=== PATIENT | female | born 1950 | race Asian ===

== ENCOUNTER 2017-07-19 05:45 | Inpatient (IN) | payer MEDICARE, OTHER ==
--- NOTE | 2017-07-13 12:27 | NUR ---
PREADMIT PT CARE NOTE THIS IS A 67 YEAR OLD FEMALE THAT IS SCHEDULED FOR A LEFT TOTAL KNEE ON 07/19/[address] WM DELGADO. PT STATES SHE LIVES ALONE IN A GROUND FLOOR APT WITH NO STAIRS. SHE SAYS SHE HAS A TUB SHOWER COMBINATION AND IS GOING TO GET A SHOWER SEAT FROM [employer]. STATES SHE WOULD LIKE MEDICARE TO PAY FOR A FWW WHILE SHE IS IN THE HOSPITAL. TOLD HER WE COULD DO THIS. PT STATES SHE HAS NOT BEEN TO [facility] (EXPLAINED WHERE IT IS LOCATED) SAYS SHE WILL GO THERE WHEN THEY ARE DONE HERE. PT HAS A FRIEND/CAREGIVER THAT IS GOING TO STAY 24 HOURS A DAY WITH HER UNTIL SHE IS GETTING AROUND ON HER OWN. PT DENIED FURTHER QUESTIONS AT THIS TIME. WILL FOLLOW THE PT WHILE SHE IS IN THE HOSPITAL. 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
[~2017-07-19] VITALS: Ht 165.1 cm; Wt 70.3 kg
[~2017-07-19 05:45] MED LIST: ACIDOPHILUS1 EAC4 PO; ADVIL200 M1 PO; AMLODIPINE BESYL5 MG PO; ATORVASTATIN CA20 MG PO; KEFLEX250 MG PO; LEVOTHYROXINE88 MCG PO; MIRALAX17 GM PO; OFLOXACIN10 ML AD; TYLENOL325 MG PO; VITAMIN B122500 MCG PO; VITAMIN C1000 MG PO; VITAMIN D31000 UNIT PO
--- NOTE | 2017-07-19 09:18 | NUR ---
07/19/17 0918 Arlyn Garcia PT AWOKE TO VOICE AND DENIES ANY PAIN. SPINAL LEVEL L1.
--- NOTE | 2017-07-19 11:14 | NUR ---
pt arrived to floor at 0945. pt nauseous. zofran and 12.5mg phenergan given so far. phenergan seems to have helped nausea. pt drowsy. c/o needing to urinate. bedpan placed. incontinent of urine. bed sheets changed. friend at bedside helping if needed.
--- NOTE | 2017-07-19 14:19 | NUR ---
PT IS RESTING SAFELY IN BED WITH CALL LIGHT IN REACH AND BED ALARM ON. PT IS VERY SLEEPY STILL EYES ARE CLOSED, RESPERATIONS EVEN. PT DID NOT NEED ANYHTING AT THE MOMENT
--- NOTE | 2017-07-19 16:16 | OR ---
[facility] [address], [place] [address] Signed DATE OF PROCEDURE: 07/19/17 PREOPERATIVE DIAGNOSIS: End-stage osteoarthritis, left knee. POSTOPERATIVE DIAGNOSIS: End-stage osteoarthritis, left knee. PROCEDURE: Left total knee arthroplasty. SURGEON: Bassem Blevins M.D. ANESTHESIA: Spinal with sedation. SPECIMENS AND COMPLICATIONS: There were no specimens or complications. TOURNIQUET TIME: About 85 minutes. DESCRIPTION OF PROCEDURE The patient taken to the operating room. After anesthesia was induced and the patient sedated, left lower extremity was positioned, prepped and draped in a routine sterile fashion. The leg was exsanguinated with an Esmarch bandage. Pneumatic tourniquet was inflated to 300 mmHg pressure. A straight anterior approach was made to the knee, centered over the patella. Skin was divided sharply. Subcutaneous tissue was divided sharply and hemostasis was achieved with electrocautery. A small medial flap was created and an anteromedial arthrotomy performed. The patella was turned up on edge, and measured to be about 23 mm. About 9 mm were trimmed off the posterior aspect of the patella with an oscillating saw and drill holes were placed for 32 mm all poly patellar button. The patella was then slid into the lateral recess. We then assembled the Abeba navigation system, placed it on the distal femur and following the Abeba protocol digitized the distal femur. We then resected the distal femur in neutral varus valgus, removing about 11 mm off the medial side and in about 3 degrees of flexion. Femoral wafers were then removed. We then transitioned the [place] navigation system to the proximal tibia. Again, following the Abeba protocol, we digitized the proximal tibia and then resected that in neutral varus valgus, 3 degrees of posterior slope per the attune surgical protocol and removing about 4 mm off the medial side. The tibial wafer was then removed. It sized to a size 5. We placed the femoral sizing jig on the distal femur and the patient sized midway between a 5 and a 6. To avoid notching, we upsized to a size 6 and placed the 6, 4-in-1 cutting block on the distal femur. Anterior, posterior, and chamfer cuts were made. Marginal osteophytes were then removed. The notch cutting block was placed on the distal femur and the notch was cut out. We placed the femoral trial on the distal femur and drilled the lug holes. We then placed the tibial tray with a 6 mm poly on the proximal tibia and reduced the knee. We were very happy with alignment, position, and stability. There was a little bit of gap on the lateral Electronically Signed By: BASSEM BLEVINS MD 07/19/17 1616 PATIENT NAME: ARIANNE LILLY OPERATIVE REPORT DATE OF : 48 PHYSICIAN: BASSEM BLEVINS MD REPORT #: [id number] REPORT IS CONFIDENTIAL AND NOT TO BE RELEASED WITHOUT AUTHORIZATION [address] [address] Signed side in flexion. We marked the position of the tibial tray and prepared the tibia with a standard reamer and a broach. We then placed the lamina stone engraver back in the knee, removed all the remaining aspects of the ACL, PCL, and medial and lateral meniscus. We then very gently pie crusted the small portion of the MCL, which gave us better balance. The knee was copiously irrigated and meticulously dried. The final components were then selected, cement was placed and the final components were cemented into place with a 5 mm right tibia and a size 6 narrow PS femur. We reduced the knee over 6 mm trial poly and held the knee in full extension. The patella was similarly cemented into place. Marginal cement was trimmed and removed. Once the cement had cured, we recycled the knee and found we could actually place an 8 mm poly with full extension and excellent stability. We therefore removed the 8 mm trial, impacted the real 8 mm PS poly. The knee was then reduced. This bone had good alignment, good position, and excellent stability. The knee was copiously irrigated and closed in a standard fashion. A sterile dressing was applied. The patient was awakened to the recovery room where she arrived in stable condition. Counts were correct and antibiotic protocols were followed. MD SLOAN Perdomo/Reba /[id number] cc: Radha Pitt PA-C Electronically Signed By: BASSEM BLEVINS MD 07/19/17 1616 PATIENT NAME: ARIANNE LILLY OPERATIVE REPORT DATE OF : 48 PHYSICIAN: BASSEM BLEVINS MD REPORT #: [id number] REPORT IS CONFIDENTIAL AND NOT TO BE RELEASED WITHOUT AUTHORIZATION
--- NOTE | 2017-07-19 17:55 | NUR ---
PT WAS SITTING IN CHAIR , BUT ASKED TO USE THE BEDSIDE COMMODE. PT IS CURRENTLY ON COMMODE WITH CALL LIGHT IN REACH, WILL CALL WHEN SHE IS DONE
--- NOTE | 2017-07-19 18:13 | NUR ---
MED REC COMPLETE
--- NOTE | 2017-07-19 19:05 | NUR ---
PATIENT SHIFT REPORT RECIEVED. PATIENT UP TO BSC 2PA W/FWW. PATIENT FRIEND IN ROOM. ASSISTED BACK TO RECLINER. CALL LIGHT IN REACH.
--- NOTE | 2017-07-19 22:25 | NUR ---
PATIENT UP TO BSC 2PA W/FWW. PATIENT COMPLAINS OF BEING DIZZY, STATES "NOT BAD AT EARLIER". PATIENT TOLERATING ICE CHIPS. DENIES NAUSEA AND PAIN. CALL LIGHT IN REACH.
--- NOTE | 2017-07-19 23:37 | NUR ---
PATIENT RESTING IN BED. PULSE OX 96% ON RA. PATIENT DENIES PAIN AND NAUSEA AT THIS TIME. CALL LIGHT IN REACH.
--- NOTE | 2017-07-20 01:01 | NUR ---
PATIENT RESTING IN BED. ICE PACK APPLIED TO RIGHT KNEE. PATIENT DENIES PAIN AND NAUSEA AT THIS TIME. CALL LIGHT IN REACH.
--- NOTE | 2017-07-20 01:30 | NUR ---
PATIENT UP TO BSC 2PA W/FWW. PATIENT STATES HER LEFT KNEE "FEELS SORE". PATIENT IS AAOX3. STEADY ON HER FEET, USES WALKER APPROPRIATELY. DRESSING C/D/I. PATIENT DENIES NAUSEA.
--- NOTE | 2017-07-20 02:00 | NUR ---
PATIENT UP BSC 2PA W/FWW. PATIENT STEAD ON HER FEET AND USES WALKER APPROPRIATELY. PATIENT NEEDS REMINDED NOT TO BEND LEFT KNEE. DRESSING C/D/I. PATIENT BECAME NAUSOUS UPON RETURNING TO BED. HAD 100MLS OF EMESIS. PRN NAUSEA MEDS GIVEN PER ORDER. ORAL CARE PROVIDED. PATIENT RETURNED TO RESTING POSITION. CALL LIGHT WITHIN REACH.
--- NOTE | 2017-07-20 04:02 | NUR ---
PATIENT RESTING, EYES CLOSED, RR 16. PULSE OX 92% ON RA.
--- NOTE | 2017-07-20 04:59 | NUR ---
PATIENT RESTING. EYES CLOSED. RR 16. PULSE OX 92% ON RA.
--- NOTE | 2017-07-20 05:22 | NUR ---
PATIENT RESTED ON AND OFF THROUGHOUT THE SHIFT. PATIENT 2PA W/FWW. CLEAR LIQUIDS; ICE CHIPS TOLERATED WELL. PATIENT REPORTED NO PAIN. PATIENT HAD ONE EPISODE OF NAUSEA WITH 100ML EMESIS. PRN NAUSEA MEDS X1. PULSE OX O2 WNL. SCDS IN PLACE. DRESSING ON LEFT KNEE C/D/I. ICE PACK APPLIED INTERMITTENTLY.
--- NOTE | 2017-07-20 06:13 | NUR ---
PATIENT BRUSHED HER TEETH AND WASHED HER FACE.
--- NOTE | 2017-07-20 06:16 | NUR ---
PT HAD BEEN ON COMMODE, BEING TRANSFERED BY 2 STAFF, BUT WHEN CALL LIGHT SOUNDED, FOUND PT SITTING ON THE EDGE OF THE BED, HAD TRANSFERED HERSELF TO THE BED FROM THE COMMODE. PT REMINDED TO WAIT FOR HELP, REMINDING HER THAT SHE NEEDS THE ASSISTANCE OF 2 STAFF. 4 RAILS PLACED UP, CALL LIGHT IN PLACE. WARM WASH CLOTH REQUESTED AND RECEIVED TO WASH HER FACE.
--- NOTE | 2017-07-20 07:11 | NUR ---
PATIENT RESTING IN BED. PULSE OX, 88%. TITRATED TO 1L NC. NEW ICE APPLIED TO KNEE. SCDS IN PLACE. HEEL PROTECTORS IN PLACE. PATIENT DENIES PAIN AND NAUSEA AT THIS TIME. CALL LIGHT IN REACH.
--- NOTE | 2017-07-20 07:30 | NUR ---
bed bath done. hands and face washed. patient up to chair with walker. chair alarm on. breakfast ordered. call button in reach. warm water, and blanket given.
--- NOTE | 2017-07-20 08:10 | NUR ---
PT AWAKE IN RECLINER EATING BREAKFAST, VISITOR IN ROOM. PT REPORTING 4/10 LEFT KNEE PAIN. MEDICATED WITH SCHEDULED TYLENOL AND TORADOL. PT DENIES NAUSEA THIS AM BUT STATES "IM STILL FEELING A LITTLE DIZZY." JUANA OATMEAL AND EGGS AT THIS TIME. IV INFUSING WNL. LEFT KNEE DRESSING CDI. CALL LIGHT WITHIN REACH.
--- NOTE | 2017-07-20 09:18 | NUR ---
PATIENT HAD ORAL CARE. UP TO BATHROOM WITH WALKER THEN BACK TO CHAIR. CALL BUTTON IN REACH.
--- NOTE | 2017-07-20 12:00 | NUR ---
ASSITED PATIENT TO BATHROOM TO BRUSH TEETH AND BACK TO CHAIR. CALL BUTTON IN REACH. LEGS UP. FRIEND IN ROOM. NO OTHER NEEDS AT THIS TIME.
--- NOTE | 2017-07-20 12:52 | NUR ---
PT SITTING UP IN CHAIR STATES "I'M GONNA TAKE A NAP." ATE ALL OF LUNCH, CONT TO DENY NAUSEA THIS SHIFT. CALL LIGHT WITHIN REACH.
--- NOTE | 2017-07-20 14:30 | NUR ---
ASSISTED PATIENT TO BATHROOM AND BACK. CHAIR ALARM ON. LEGS UP CALL BUTTON IN REACH. COMPLAINS ALOT ABOUT HER IV SITE "REALLY" HURTING. NOTIFIED NURSE. FRESH WATER GIVEN. NO OTHER NEEDS AT THIS TIME.
--- NOTE | 2017-07-20 15:44 | NUR ---
PT RESTING IN RECLINER, EYES CLOSED, RESP EVEN AND UNLABORED. VISITOR SLEEPING ON COUCH.
--- NOTE | 2017-07-20 16:48 | NUR ---
PT 1PA WITH WALKER TO RESTROOM. AMB BACK TO RECLINER. CALL LIGHT WITHIN REACH. CHAIR ALARM IN PLACE.
--- NOTE | 2017-07-20 17:50 | NUR ---
PATIENT SITTING IN CHAIR WITH LEGS ELEVATED. CALL BUTTON IN REACH. NO OTHER NEEDS AT THIS TIME.
--- NOTE | 2017-07-20 19:10 | NUR ---
SHIFT REPORT RECIEVED. STAGE TECHNICIAN IN ROOM ASSISTING WITH TOILETING NEEDS. PATIENT 1PA W/FWW.
--- NOTE | 2017-07-20 20:00 | NUR ---
PATIENT UP TO BATHROOM, 1PA W/FWW. PATIENT DENIES DIZZINESS AT THIS TIME. PATIENT RATES PAIN AT 8/10. SCHEDULED PAIN MEDS GIVEN PER ORDERS. DENIES NAUSEA. DRESSING C/D/I. PATIENT RETURNED TO BED. IV SL. PULSE OX DC. SCDS IN PLACE. ICE PACK APPLIED TO LEFT KNEE. PILLOWS PLACED ON SIDE OF KNEE FOR COMFORT. LUNG SOUNDS CLEAR THROUGHOUT. BOWEL SOUNDS ACTIVE. ABD NONTENDER, SOFT. HEEL PROTECTORS IN PLACE.
--- NOTE | 2017-07-20 23:09 | NUR ---
PATIENT UP TO BATHROOM. 1PA W/FWW. PATIENT STATES HER PAIN AT 8/10. PATIENT BACK TO BED. POSITIONED FOR COMFORT. ICE IN PLACE. WARM BLANKET PROVIDED. SCDS AND HEEL PROTECTORS IN PLACE. DRESSING ON LEFT KNEE C/D/I. CMS INTACT IN0 LOWER EXTREMITIES. PATIENT DENIES DIZZINESS WITH AMBULATION. DENIES NAUSEA. CALL LIGHT IN REACH. BED ALARM ON.
--- NOTE | 2017-07-21 00:28 | NUR ---
PATIENT RESTING IN BED. POSITIONED FOR COMFORT. ICE IN PLACE. PATIENT DENIES NAUSEA. STATES PAIN IS INCREASED, "IT IS SORE". DISCUSSED SCHEDULED PAIN MEDS WITH PATIENT, AGREES THAT SHE WILL WAIT UNTIL SCHDULED PAIN MEDS ARE DUE. NO PRN PAIN MEDS AVAILABLE AT THIS TIME. CALL LIGHT IN REACH.
--- NOTE | 2017-07-21 01:50 | NUR ---
PATIENT UP TO BATHROOM. 1PA W/FWW. PATIENT STEADY ON HER FEET. SCHEDULED PAIN MEDS GIVEN. FRESH WATER PROVIDED. ICE APPLIED TO LEFT KNEE. SCDS IN PLACE. PATIENT REFUSED HEEL PROTECTORS. PATIENT POSITIONED IN BED FOR COMFORT. DRESSING ON LEFT JOY C/D/I.
--- NOTE | 2017-07-21 03:45 | NUR ---
PATIENT RESTING IN BED. EYES CLOSED. RR16. CALL LIGHT WITHIN REACH. BED ALARM ON.
--- NOTE | 2017-07-21 04:28 | NUR ---
PATIENT UP TO BATHROOM. 1PA W/FWW. PATIENT REPORTS PAIN IS "BETTER". REFUSED HEEL PROTECTORS AND SCDS. ICE IN PLACE. CALL LIGHT IN REACH. BED ALARM ON.
--- NOTE | 2017-07-21 05:16 | NUR ---
PATIENT RESTED ON AND OFF THROUGHOUT THE NIGHT. SCHEDULED PAIN MEDS GIVEN, NO PRN PAIN MEDS ORDERED. ICE APPLIED TO LEFT KNEE. REFUSED SCDS AND HEEL PROTECTORS AT TIMES. DENIES NAUSEA AND DIZZINESS. 1PA W/FWW. BED ALARM ON, NEEDS REMINDED TO CALL FOR ASSISTANCE. TOLERATING REGULAR DIET. IV SL. DRESSING ON LEFT KNEE C/D/I.
--- NOTE | 2017-07-21 06:04 | NUR ---
PATIENT ASSISTED TO THE RESTROOM. PATIENT IS A SBA W/FWW. PATIENT TOLERATED AMBULATION WELL AND IS STEADY ON HER FEET. PATIENT IS NOW BACK IN BED RESTING. PATIENTS DRESSING REMAINS C/D/I W/NO SHADOWING PRESENT. PATIENT IS NOW BACK IN BED RESTING. PATIENTS BED ALARM IS ON FOR SAFETY. NEW ICE PACKS PLACED ON PATEINTS KNEE. PATIENT DENIES ANY FURTHER NEEDS. CALL LIGHT IN REACH.
--- NOTE | 2017-07-21 07:01 | NUR ---
CONTACTED IN [facility] [[email or web address]] TO PAIN MANAGEMENT. X2 NEW ORDERS RECIEVED. VERIFIED USING READ BACK METHOD. NEW ORDERS ENTERED.
--- NOTE | 2017-07-21 07:37 | NUR ---
1PA TO CHAIR FOR BREAKFAST. WARM BLANKETS PROVIDED. BLINDS RAISED. LINENS CHANGED. DRESSING TO LEFT KNEE C/D/I. AMBULATING WELL. C/O PAIN DURING AMBULATION, BUT RESOLVES AT REST.
--- NOTE | 2017-07-21 13:55 | NUR ---
PT SITTING IN CHAIR, WITH HEEL CUSHIONS ON. SHE WAS ALERT AND FRIENDLY. PAIN SEEMED TO BE AN ISSUE. I ENCOURAGED HER TO TRY AND STAY ON TOP OF PAIN, HER FRIEND THAT WAS IN VISITING SAID THAT'S WHAT SHE HAS BEEN TOLD BEFORE. SHE WAS FRIENDLY, AND KNODDED SHE UNDERSTOOD. WILL FOLLOW NEEDED
--- NOTE | 2017-07-21 15:10 | NUR ---
HANDOFF REPORT RECEIVED FROM RN MIKE, ASSUMED CARE OF PT.
--- NOTE | 2017-07-21 17:39 | NUR ---
PT KNEE NOW OPEN TO AIR, CLEAN, DRY, INTACT. PT RECEIVING PRN OXYCODONE X1 THIS SHIFT. PT AMBULATING WELL WITH ONE PERSON ASSIST, FWW, DOES NOT USE CALL LIGHT APPROPRIATELY IN RESTROOM, OTHERWISE A&O X3. MINIMAL NON-PITTING EDEMA NOTED ON LEFT LOWER EXTREMITY, ICE APPLIED Q2-3 ORDERED, ELEVATED LEG PERIODICALLY. PT HAS HAD LOOSE STOOLS THIS SHIFT AND YESTERDAY, HELD MIRALAX.
--- NOTE | 2017-07-21 18:15 | NUR ---
PT AMBULATED MED SURG HALLWAY X1 LAP WITH RN STANDBY. PT TOLERATED WELL, STATING THAT SHE'S IN NO PAIN. PT ASSISTED BACK IN TO BED, SCD'S APPLIED, PT GIVEN WARM BLANKETS. NO ADDITIONAL REQUESTS AT THIS TIME. CALL LIGHT GIVEN TO PT AND REMINDED PT TO USE CALL LIGHT FOR HELP GETTING UP.
--- NOTE | 2017-07-21 19:00 | NUR ---
REPORT RECV'D FROM FABIENNE STARKS, PT IN BED RESTING. PT STATES "I HAVE HAD A BUSY DAY." RATES PAIN A 4/10, PAIN IS TOLERABLE FOR PT. INCISION C/D/I, OPEN TO AIR. NO FURTHER NEEDS AT THIS TIME. CALL LIGHT IN PLACE.
--- NOTE | 2017-07-21 19:32 | NUR ---
GAVE PATIENT ICE PACKS. AND HOT TEA AND THE ONLY WAY SHE WOULD DRINK HER WATER IS WARM.
--- NOTE | 2017-07-21 20:07 | NUR ---
IN TO GIVEN PM MEDICATIONS, PT AWAKE. UP TO BATHROOM WITH FWW AND STANDBY ASSIST. REENFORCED USE OF CALL LIGHT WHEN NEEDING TO GET OUT OF BED. PT ASSISTED BACK TO BED, TOLERATED WELL. ASSESSMENT COMPLETED. PT RATE PAIN A 4/10, TYLENOL GIVEN. NO FURTHER NEEDS AT THIS TIME, CALL LIGHT IN REACH.
--- NOTE | 2017-07-21 22:15 | NUR ---
IN TO CHECK ON PT, PT APPEARS TO BE SLEEPING. NO APPARENT DISTRESS NOTED. RR EVEN AND UNLABORED. CALL LIGHT IN REACH.
--- NOTE | 2017-07-22 01:55 | NUR ---
PT CALLED TO USE RESTROOM. PT UP TO BATHROOM WITH STANDBY ASSIST AND FWW. PT TOLERATED WELL. ASSISTED BACK TO BED. PT RATES PAIN 5/10, OFFERED PRN NARCOTICS, PT DECLINED. PT STATES "TOO MUCH FOR ME." PT GIVEN SCHEDULE TYLENOL AND TORADOL FOR PAIN. PT IS CONCERNED ABOUT CONSTIPATION SINCE MEDICATIONS HAVE BEEN HELD FOR HAVING SEVERAL BM'S TODAY. I REASSURED PT THAT MIRALAX WILL BE GIVEN IN AM. FRESH WATER GIVEN. NO FURTHER NEEDS AT THIS TIME. CALL LIGHT IN REACH.
--- NOTE | 2017-07-22 04:16 | NUR ---
PT CALLED, UP TO BATHROOM WITH STANDBY ASSIST OF EMS INSTRUCTOR. PT REQUESTING "STUFF TO MAKE HER POP." PT VOICING CONCERNS REGARDING CONSTIPATION. PT REASSURED THAT DUE TO HAVING SEVERAL BM'S OVER THE PAST SHIFT AND MIRALAX BEING ORDERED IN THE AM SHE SHOULD NOT BE CONSTIPATED. NO FURTHER NEEDS AT THIS TIME. CALL LIGHT IN REACH.
--- NOTE | 2017-07-22 05:04 | NUR ---
PT HAS HAD UNEVENTFUL SHIFT, RESTED WELL. SCHEDULED TYLENOL AND TORADOL GIVEN FOR PAIN PER PT REQUEST. AAO X3, HAS USED CALL LIGHT APPROPRIATELY DURING SHIFT. INCISION SITE C/D/I, OPEN TO AIR. PT HAS APPLIED ICE FOR COMFORT. MOM HELD FOR BM DURING DAY SHIFT AND PREVIOUS SHIFTS. SL R HAND, FLUSHS WELL. VOIDING QS.
--- NOTE | 2017-07-22 07:00 | NUR ---
BEDSIDE HANDOFF REPORT RECEIVED FROM AUTOMATIC LATHE OPERATOR RN. PT SLEEPING, LEFT UNDISTURBED.
--- NOTE | 2017-07-22 08:00 | NUR ---
PT SITTING IN CHAIR, ATE BREAKFAST, TOLERATED WELL. PT ON ROOM AIR, LUNG SOUNDS CLEAR. PT DENIES NAUSEA, BOWEL TONES ACTIVE. PT RATING KNEE PAIN 6/10, GIVEN SCHEDULED TYLENOL. IV OCCLUDED, UNABLE TO FLUSH, NEW IV OBTAINED TO RIGHT FA, TORADOL GIVEN, LEFT HAND IV REMOVED. PT REQUESTING MIRALAX, GIVEN. MD TO BEDSIDE, PLAN TO DISCHARGE TODAY AFTER PHYSICAL THERAPY, DISCUSSED PAIN MANAGEMENT AT HOME. PT DENIES OTHER NEEDS AT THIS TIME, CALL LIGHT WITHIN REACH, CHAIR ALARM ON.
[2017-07-22] MEDS ORDERED: IBUPROFEN800 MG PO ×4 (09:20→09:33)
[2017-07-22] MEDS ORDERED: ACETAMINOPHEN650 M1 PO ×4 (09:21→09:34)
[2017-07-22] MEDS ORDERED: XARELTO10 MG PO ×4 (09:27→09:32)
[2017-07-22] MEDS ORDERED: OXYCODONE HCL10 MG PO ×2 (09:43)
--- NOTE | 2017-07-22 10:11 | NUR ---
DR. DELGADO CALLED TO VERIFY IBUPROFEN ORDER FOR PHARMACIST CONCERN OF BLEED RISK WITH XARELTO. TELEPHONE ORDER TO CHANGE IBUPROFEN TO 800 MG TID PRN FOR PAIN.
--- NOTE | 2017-07-22 11:01 | NUR ---
HAD SHOWER YESTERDAY REFUSED SHOWER TODAY. GOT HER SOME HOT TEA A COUPLE OF TIMES THIS MORNING.
--- NOTE | 2017-07-22 11:21 | NUR ---
CAREGIVER AND I WALKED WITH PATIENT 4 LAPS AROUND MED SURG THIS MORNING. PATIENT WAS DOING VERY WELL.
--- NOTE | 2017-07-22 13:53 | NUR ---
TOOK OUT PTS IV IN RIGHT FOREARM, INTACT AND NO SKIN BREAKDOWN
--- NOTE | 2017-07-23 10:56 | DS ---
[facility] [address] [place], [place] [address] Signed DATE OF DISCHARGE: 07/22/17 FINAL DIAGNOSIS At the time of discharge is end-stage osteoarthritis, left knee. PROCEDURE: Left total knee arthroplasty. ATTENDING PHYSICIAN: Todd Delgado MD. HISTORY OF PRESENT ILLNESS The patient is a 67-year-old white female with end-stage osteoarthritis in the left knee. No longer responding to conservative modalities. She therefore presented for elective total knee arthroplasty on the left. HOSPITAL COURSE The patient has been previously admitted to day surgery on the and evaluated and thought to be stable by the anesthesia service. On the , she was taken from day surgery to the operating room, where she underwent an uneventful left total knee arthroplasty using the Attune system. Postoperatively, she has done well. She is currently receiving excellent pain relief on alternating oxycodone and Dilaudid. She has been taking Xarelto for DVT prophylaxis. She is currently independent with her ambulation with a 4-wheeled walker. We will have her continue outpatient physical therapy for her right total knee following the total knee protocol and have her continue on oxycodone and Xarelto as an outpatient. We will have her follow up with us in 4-6 weeks to evaluate her progress. Todd Delgado MD WFB/Modl /[id number] cc: Radha Pitt PA-C Electronically Signed By: TODD DELGADO MD 07/23/17 1056 PATIENT NAME: ARIANNE LILLY DISCHARGE SUMMARY DATE OF : 48 PHYSICIAN: TODD DELGADO MD REPORT #: [id number] REPORT IS CONFIDENTIAL AND NOT TO BE RELEASED WITHOUT AUTHORIZATION
== END 2017-07-22 14:25 | disposition home or self-care (01) | DRG 470 ==
LOC: MS 05:45 → DSVR 05:45 → MS 06:45
PROVIDERS: ADMIT Orthopaedic Surgery
PROC: 0SRD0J9 Replacement of Left Knee Joint with Synthetic Substitute, Cemented, Open Approach (ICD-10-PCS; principal; 2017-07-19 06:45)
DX: M17.12 Unilateral primary osteoarthritis, left knee (principal); E03.9 Hypothyroidism, unspecified; I10 Essential (primary) hypertension; Z79.899 Other long term (current) drug therapy
CPT/HCPCS: 01402; 36415; 73560; 80048; 85025; 94760; 94762; 97110; 97116; 97161; C1713; C1776; J0690; J1885; J2250; J2274; J2405; J2550; J2704; J3010; J7120

== ENCOUNTER 2017-07-24 12:47 | Emergency (ER) | payer MEDICARE, OTHER ==
[~2017-07-24] VITALS: Ht 165.1 cm; Wt 70.3 kg
[~2017-07-24 12:47] MED LIST changes: +ACETAMINOPHEN650 M1 PO; +IBUPROFEN800 MG PO; +OXYCODONE HCL10 MG PO; +XARELTO10 MG PO
[2017-07-24] MEDS ORDERED: ZOFRAN ODT4 MG SL (14:11)
== END 2017-07-24 14:59 | disposition home or self-care (01) ==
LOC: ED 12:47
DX: M96.831 Postprocedural hemorrhage of a musculoskeletal structure following other procedure (principal); E03.9 Hypothyroidism, unspecified; I10 Essential (primary) hypertension; E78.5 Hyperlipidemia, unspecified; Z96.653 Presence of artificial knee joint, bilateral; Z98.890 Other specified postprocedural states; Z79.899 Other long term (current) drug therapy
CPT/HCPCS: 96372; 99283; J1170; J2550

== ENCOUNTER 2019-07-09 08:38 | Emergency (ER) | payer MEDICARE, OTHER ==
[~2019-07-09] VITALS: Ht 165.1 cm; Wt 70.3 kg
[~2019-07-09 08:38] MED LIST changes: +ZOFRAN ODT4 MG SL
[2019-07-09] MEDS ORDERED: LISINOPRIL10 MG PO (09:29)
[2019-07-09] MEDS ORDERED: LOVASTATIN40 MG PO (09:29)
[2019-07-09] MEDS ORDERED: TOPROL XL50 MG PO (10:39)
[2019-07-09] MEDS ORDERED: HYDROCHLOROTHIA25 MG PO (10:44)
== END 2019-07-09 10:54 | disposition home or self-care (01) ==
LOC: ED 08:38
DX: R05 Cough (principal); T46.4X5A Adverse effect of angiotensin-converting-enzyme inhibitors, initial encounter; E03.9 Hypothyroidism, unspecified; I10 Essential (primary) hypertension; E78.5 Hyperlipidemia, unspecified; Z79.899 Other long term (current) drug therapy
CPT/HCPCS: 71046; 99283-25

== ENCOUNTER 2019-07-13 10:44 | Inpatient (IN) | payer MEDICARE, OTHER ==
[~2019-07-13] VITALS: Ht 165.1 cm; Wt 69.0 kg
[~2019-07-13 10:44] MED LIST changes: +HYDROCHLOROTHIA25 MG PO; +LISINOPRIL10 MG PO; +LOVASTATIN40 MG PO; +TOPROL XL50 MG PO
--- OUTSIDE RECORDS SUMMARY | 2019-07-13 10:46 | XMS ---
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 [place] VISIT COUNT (12 MO.) 2 [facility] TOTAL 2 NOTE: Visits indicate total known visits. ED/UCC VISIT TRACKING (12 MO.) 07/13/2019 10:45 [facility] [place] TYPE: Emergency COMPLAINT: - VOMMITING 07/09/2019 08:38 [facility] TYPE: Emergency COMPLAINT: - COUGH- 2 MONTHS DIAGNOSES: - Hypothyroidism, unspecified - Other aquarist (current) drug therapy - Hyperlipidemia, unspecified - Adverse effect of isryrbdssuc-koukdurtav-vuxnew inhibitors, initial encounter - Essential (primary) hypertension - Cough INPATIENT VISIT TRACKING (12 MO.) No inpatient visits to display in this time frame [email or web address]
--- NOTE | 2019-07-13 15:55 | NUR ---
PT RESTING IN SEMI FOWLERS POSITION IN BED. PT A/O REPORTS HEADACHE, PT DECLINES TYLENOL BUT TAKES BP MED FOR ELEVATED BP OF 170/60. PT REQUESTED AND RECEIVED CHICKEN NOODLE SOUP. PT DENIES NAUSEA OR SOB. PT ASSESSMENT COMPLETED. CALL LIGHT AND H2O IN REACH. PT DENIES FURTHER NEEDS/CONCERNS.
[2019-07-13] MEDS ORDERED: ZITHROMAX250 MG PO (16:55)
--- NOTE | 2019-07-13 16:57 | NUR ---
MEDICATION RECONCILIATION COMPLETED. PATIENT STATES HER BLOOD PRESSURE IS NOT WELL CONTROLLED. STATES SHE HAS BEEN ASKING HER DOCTOR TO CHANGE HER MEDICATIONS FOR BLOOD PRESSURE CONTROL. NOW SHE WANTS TO GO BACK TO THE [facility], EXCEPT FOR LISINOPRIL WHICH MADE HER COUGH.
--- NOTE | 2019-07-13 19:47 | NUR ---
PT RESTING IN BED, REPOSITIONED PER REQUEST, IV FLUIDS INFUSING PER EMAR WNL, NO FURTHER NEEDS AT THIS TIME, CALL LIGHT WITHIN REACH.
--- NOTE | 2019-07-13 21:40 | NUR ---
PT UP TO BATHROOM, VOIDED IN TOILET, IV FLUIDS INFUSING PER EMAR WNL, PT'S LS CLEAR, HEART SOUNDS REGULAR, AOX4, APPROPRIATE, PT DENIES ANY NEEDS AT THIS TIME, CALL LIGHT WITHIN REACH. FALL PRECAUTIONS IN PLACE.
--- NOTE | 2019-07-13 23:07 | NUR ---
PT'S IV SL PER ORDER, PT RESTING IN BED COMFORTABLY, NO NEEDS AT THIS TIME, CALL LIGHT WITHIN REACH.
--- NOTE | 2019-07-14 01:00 | NUR ---
PT RESTING IN BED, EYES CLOSED, BREATHS EVEN, UNLABORED, NO NEEDS AT THIS TIME, CALL LIGHT WITHIN REACH.
--- NOTE | 2019-07-14 03:08 | NUR ---
PT RESTING IN BED, EYES CLOSED, BREATHS EVEN, UNLABORED, NO NEEDS AT THIS TIME, CALL LIGHT WITHIN REACH.
--- NOTE | 2019-07-14 04:51 | NUR ---
PT AOX4, APPROPRIATE, PT MOSTLY INDEPENDENT IN ROOM, IV SL NOW, SODIUM RECHECKED AT 2100 CAME BACK AT 127, SEE LABS, PT AMBULATES WELL, VOIDING WELL, USES CALL LIGHT APPROPRIATELY, NO C/O N/V/D,
--- NOTE | 2019-07-14 05:32 | NUR ---
PT RESTING IN BEDSIDE CHAIR, C/O ARGUELLES PAIN, PT STATES "THE AC IS GIVING ME A HEADACHE", PT REFUSES NEED FOR PRN TYLENOL, PT GIVEN WARM WASH CLOTH AND WARM WATER PER PT'S REQUEST, PT DENIES ANY FURTHER NEEDS AT THIS TIME, IV REMAINS SL, PT'S VSS, UO QS, CALL LIGHT WITHIN REACH. FALL PRECAUTIONS IN PLACE.
--- NOTE | 2019-07-14 07:17 | NUR ---
PT SITTING UP IN CHAIR ALERT AND ORIENTED. PT STATES "I THINK THIS IS ALL BECAUSE I SWITCHED MY BLOOD PRESSURE MEDACINE I NEED THREE MONTH PRESCRIPTION FOR AMLODAPINE BECAUSE THAT'S WHAT HAS WORKED FOR 10 YEARS". PT EDUCATED THAT THIS IS WHAT SHE IS CURRENTLY RECEIVING IN HOSPITAL AND THAT THIS WILL LIKELY BE CONTINUED BY MD AT TIME OF DISCHARGE. BEDSIDE REPORT RECEIVED FROM TEREZA BATISTA. PT
--- NOTE | 2019-07-14 07:54 | NUR ---
PT AMBULATING IN ROOM , DENIES DIZZINESS OR SOB BUT REPORTS PERSISTING HEADACHE OF 8/10 THAT SHE REPORTS SHE HAS HAD OFF AND ON SINCE SHE HAD HER SECOND FLU SHOT MORE THAN A WEEK AGO. PT REQUESTED AND RECEIVED PRN PO TYLENOL AND IS CURRENTLY SITTING UP IN CHAIR EATING BREAKFAST. CALL LIGHT AND H2O IN REACH. NO FURTHER NEEDS/CONCERNS VOICED.
--- NOTE | 2019-07-14 08:11 | NUR ---
PT SITTING UP IN CHAIR FINISHED HER BREAKFAST. VSS. AM MEDS ADMINISTERED. CALL LIGHT AND H2O IN REACH. NO FURTHER NEEDS/CONCERNS VOICED.
--- NOTE | 2019-07-14 09:12 | NUR ---
PATIENT SITTING UP IN CHAIR. VITAL SIGNS AND I&O DONE. CALL LIGHT WITHIN REACH. SETS UP BATHROOM FOR SHOWER. CALL LIGHT WITHIN REACH. NO OTHER NEEDS AT THIS TIME
--- NOTE | 2019-07-14 10:30 | NUR ---
PT REPORTS "I FEEL LIKE I SHOULD GO HOME TODAY, I LIKE FRESH AIR AND THIS WINDOW DOESN'T OPEN. THE CARE I HAVE RECEIVED IS REALLY GOOD AND I WOULD STAY BUT THIS CENTRAL AIR GIVES ME A HEADACH". "ALSO I NEED TO BE SENT WITH ENOUGH MEDICATION TO GET ME THROUGH TUESDAY UNTIL I CAN GAT IT FILLED FROM MY PHARMACY AND I NEED A THREE MONTH SUPPLY OF THE AMLODOPINE". DR DUFFY NOTIFIED OF PT'S REQEUSTS.
[2019-07-14] MEDS ORDERED: AMLODIPINE BESY10 MG PO (10:48)
--- NOTE | 2019-07-14 10:58 | NUR ---
PT SITTING UP IN CHAIR, PO K+ ADMINISTERED SEE EMAR. PT REQUESTED AND RECEIVED CREAM OF MUSHROOM SOUP. PT ALSO REQUESTED NAD RECEIVED CHICKEN NOODLE SOUP AND WARM WATER. CALL LIGHT AND H2O IN REACH. PT DENIES FURTHER NEEDS OR CONCERNS.
--- NOTE | 2019-07-14 11:26 | NUR ---
Pt sitting up in chair eating soup. Pt requested and received two glasses of warm water. Call light and h2o in reach. Pt denies further needs/concerns.
--- NOTE | 2019-07-14 11:41 | NUR ---
PATIENT SITTING UP IN CHAIR. PATIENT REFUSED TO TAKE A SHOWER TODAY BECAUSE SHE IS GOING TO BE DISCHARGE AND PPREFERS TO TAKE A SHOWER AT HOME
--- NOTE | 2019-07-14 14:06 | EKG ---
[facility] [address] [place] [address] Signed Normal sinus rhythm T wave abnormality, consider anterior ischemia Prolonged QT Abnormal ECG When compared with ECG of 13-JUL-2017 13:05, No significant change was found Confirmed by STELLA DUFFY DO ([id number]) on 07/14/2019 2:06:27 PM Electronically Signed By: STELLA DUFFY DO 07/14/19 1406 PATIENT NAME: ARIANNE LILLY Electrocardiogram DATE OF : 48 PHYSICIAN: STELLA DUFFY DO REPORT #: [id number] REPORT IS CONFIDENTIAL AND NOT TO BE RELEASED WITHOUT AUTHORIZATION
== END 2019-07-14 12:10 | disposition home or self-care (01) | DRG 641 ==
LOC: ED 10:44 → MS 10:46
PROVIDERS: ADMIT Student in an Organized Health Care Education/Training Program
DX: E87.1 Hypo-osmolality and hyponatremia (principal); R11.2 Nausea with vomiting, unspecified; E87.6 Hypokalemia; E78.5 Hyperlipidemia, unspecified; T50.2X5A Adverse effect of carbonic-anhydrase inhibitors, benzothiadiazides and other diuretics, initial encounter; I10 Essential (primary) hypertension; E03.9 Hypothyroidism, unspecified; Z79.899 Other long term (current) drug therapy
CPT/HCPCS: 93005; 93010; J1650; J2405; J3480; J7030; J7120

== ENCOUNTER 2019-08-14 08:47 | Emergency (ER) | payer MEDICARE, OTHER ==
[~2019-08-14] VITALS: Ht 165.1 cm; Wt 69.0 kg
--- OUTSIDE RECORDS SUMMARY | ~2019-08-14 | XMS | Encounter Summary ---
Demographics + + + | Address | [address] | | | [place] [address] | + + + | Home Phone | | + + + | Preferred Language | Unknown | + + + | Marital Status | Single | + + + | Latter-Day Affiliation | Unknown | + + + | Race | | + + + | Ethnic Group | Not or | + + + Author + + + | Author | [facility] | + + + | Organization | [facility] | + + + | Address | Unknown | + + + | Phone | Unavailable | + + + Support + + + + + | Name | Relationship | Address | Phone | + + + + + | Bessy Aviles | LITA | [address] | | | | | [id number], [place] | | | | | [address] | | + + + + + Care Team Providers + +------+ + | Care Director Of Sustainable Design Name | Role | Phone | + +------+ + | Radha Messer PA-C | PCP | | + +------+ + Reason for Visit + + + | Reason | Comments | + + + | Knee pain | Left Knee Pain | + + + Encounter Details +--------+---------+ + + + | Date | Type | Department | Care Team | Description | +--------+---------+ + + + | 02/11/ | Office | [facility] | Russell Hernandez, | Left knee pain, | | 2016 | Visit | Sports Medicine & | MD Jordy Reyes | unspecified | | | | Orthopaedic Surgery | [address] [place], [place] | chronicity (Primary | | | | [address] | [address] | Dx); Primary | | | | [address] | [phone] | osteoarthritis of | | | | [place], [place] | | one knee, left; Hip | | | | [address] | | pain, bilateral | | | | [phone] | | | +--------+---------+ + + + Social History + +-------+ +--------+------+ | Tobacco Use | Types | Packs/Day | Years | Date | | | | | Used | | + +-------+ +--------+------+ | Never Smoker | | | | | + +-------+ +--------+------+ + + +---------+ + | Alcohol Use | Drinks/Week | oz/Week | Comments | + + +---------+ + | No | 0 Standard drinks | 0.0 | | | | or equivalent | | | + + +---------+ + + + + | Sex Assigned at | Date Recorded | | | | + + + | Not on file | | + + + + + + + | Job Start Date | Occupation | Industry | + + + + | Not on file | Not on file | Not on file | + + + + + + + + | Travel History | Travel Start | Travel End | + + + + + + | No recent travel history available. | + + documented as of this encounter Last Filed Vital Signs + + + + + | Vital Sign | Reading | Time Taken | Comments | + + + + + | Blood Pressure | 112/70 | 02/12/2016 2:23 PM | right arm adult cuff | | | | PDT | | + + + + + | Pulse | 67 | 02/12/2016 2:23 PM | | | | | PDT | | + + + + + | Temperature | - | - | | + + + + + | Respiratory Rate | - | - | | + + + + + | Oxygen Saturation | 97% | 02/12/2016 2:23 PM | | | | | PDT | | + + + + + | Inhaled Oxygen | - | - | | | Concentration | | | | + + + + + | Weight | 68.5 kg (151 lb) | 02/12/2016 2:23 PM | | | | | PDT | | + + + + + | Height | - | - | | + + + + + | Body Mass Index | - | - | | + + + + + documented in this encounter Patient Instructions Patient Instructions Russell Hernandze MD - 02/12/2016 3:09 PM PDTHip is doing well; come get Xray of it in 3 years. Left knee has arthritis. I recommend trying cortisone again and if it doesn't give good, lasting relief, come talk to me about replacing it. We used a sma ll dose of cortisone today. I recommend you try to put off surgery if you are able, but we can do it if the problem impacts your lifestyle too much. I would not do it just so you can squat or kneel (you may or may not be able to do that after surgery...one cannot count on i t). documented in this encounter Progress Notes Russell Hernandez MD - 02/12/2016 2:28 PM PDTFormatting of this note might be different fr om the original. Reason for visit; Patient presents with: Knee pain: Left Knee Pain Onset/Date of Surgery; (pain since 2003. States that she injured her left knee at age 8 or 9 and knee got infected. She has also fallen on that knee in the past, last fall was last month. Denies any surgery on that knee. ) Pain score; Pain Score: 01 - None to Mild Vital signs; BP 112/70[right arm adult cuff[ | Pulse 67 | Wt 68.493 kg (151 lb) | SpO2 97% S: F/U Right THR (still occas groin pain). Ongoing left knee pain (childhood fracture). Medial pain, can't squatt, kneel, stand too long, swells, hurts medially. Has had some carlyle injections in past. O: Min effus, tender lat joint line, pain with flx >120, slight pseudolax collats, no redn ess. Left hip ROM nl. Right knee wi full ROM, Nn TTP, normal strength, stab. No periph ed anay. Right hip good ROM, slight tender groin. 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 Pevis: THR ok A: Post traumatic DJD L knee P: See the "Instructions" segment below in the AVS segment of today's note for plan. Consent was obtained. Risks and benefits were explained. Questions were encouraged and answ ered. Correct patient was identified. Correct site and side confirmed. The injection site was surgically prepped, and the injection carried out in a standard replaced by [facility] an[facility] ion, using anatomy, palpation, and aspiration/loss of resistance technique. Discussion was provided regarding the possibility of a post injection flare up as well as the possibility o f transient elevation of blood sugars in diabetics. Past Medical & Surgical History: Past medical and surgical history reviewed per patient intake form. Past Medical History Diagnosis Date Hyperlipidemia Environmental allergies Past Surgical History Procedure Laterality Date Total hip replacement Right 11/12/2014 Family History Problem Relation Hypertension Mother Hypertension Maternal Grandfather Review of Systems: Completed and reviewed with patient per patient intake form. See scanned document for refe rence. Social history: Padmini reports that she has never smoked. She does not have any smokeless tobacco histo ry on file. She reports that she does not drink alcohol.. Allergies: Allergies as of 02/12/2016 (No Known Allergies) Current Medications: Current Outpatient Prescriptions Medication amLODIPine 5 mg oral tablet atorvastatin 40 mg oral tablet levothyroxine 88 mcg oral tablet No current facility-administered medications for this visit. Review of Systems Constitutional: Negative for fever and weight loss. HENT: Negative for nosebleeds and sore throat. Respiratory: Negative for cough and shortness of breath. Cardiovascular: Negative for chest pain and leg swelling. Gastrointestinal: Negative for heartburn and blood in stool. Genitourinary: Negative for dysuria and frequency. Musculoskeletal: Positive for joint pain and falls. Skin: Negative for itching and rash. Neurological: Negative for tremors and seizures. Psychiatric/Behavioral: Negative for depression and substance abuse. documented in this e ncounter Plan of Treatment Not on filedocumented as of this encounter Procedures + +--------+ + + + | Procedure Name | Priori | Date/Time | Associated Diagnosis | Comments | | | ty | | | | + +--------+ + + + | MS DRAIN/INJECT | Routin | 02/12/2016 | Primary | | | LARGE JOINT/BURSA | e | 3:06 PM | osteoarthritis of | | | W/O US GUIDE | | PDT | one knee, left | | + +--------+ + + + documented in this encounter Results X-RAY KNEE 2 VIEWS LEFT (02/12/2016 4:23 PM PDT) + + | Specimen | + + | | + + + + + | Narrative | Performed At | + + + | [facility] [address], [place] | [facility] | | [address] Name: PADMINI LILLY Phys: | DEPARTMENT OF | | RUSSELL HERNANDEZ : 1950 Sex: F | RADIOLOGY | | CSN: [id number] MR# [id number] | | | Exam Date: 02/12/2016 EXAM: Bilateral knee series | | | CLINICAL HISTORY: Left knee pain COMPARISON: 11/05/2014 | | | TECHNIQUE: Standing AP and salt Contreras views of both knees were | | | obtained. FINDINGS: Left knee: There is severe medial | | | tibiofemoral joint space narrowing, subchondral sclerosis, vacuum | | | phenomenon, spurring, irregularity of the articular surfaces and mild | | | depression of the medial tibial plateau. Moderate lateral | | | tibiofemoral joint space narrowing and mild marginal spurring are | | | present. There is no acute fracture, osteochondral lesion or focal | | | osseous destruction. Right knee: Mild medial and lateral | | | tibiofemoral joint space narrowing are present. There is no | | | osteochondral lesion, acute fracture or focal osseous destruction. | | | IMPRESSION: Unchanged severe medial left knee tibiofemoral | | | posttraumatic joint degeneration with depression of the medial tibial | | | plateau from prior fracture. REPORT SIGNED IN OTHER VENDOR | | | SYSTEM 02/12/2016 Reported by: ADALI SHEN MD | | | Electronically signed by: ADALI SHEN MD Transcribed | | | Date/Time: 02/12/2016 16:23 Operating Room Aide: FLUENCY | | + + + + + | Procedure Note | + + | Interface, Radiology Results - 02/12/2016 4:28 PM [facility] | | [address] | | [place] [address] | | | | | | Name: PADMINI LILLY | | Phys: RUSSELL HERNANDEZ | | : 1950 Sex: F | | CSN: [id number] | | MR# [id number] | | Exam Date: 02/12/2016 | | | | EXAM: | | Bilateral knee series | | | | CLINICAL HISTORY: | | Left knee pain | | | | COMPARISON: | | 11/05/2014 | | | | TECHNIQUE: | | Standing AP and salt Contreras views of both knees were obtained. | | | | FINDINGS: | | Left knee: There is severe medial tibiofemoral joint space | | narrowing, subchondral sclerosis, vacuum phenomenon, spurring, | | irregularity of the articular surfaces and mild depression of the | | medial tibial plateau. Moderate lateral tibiofemoral joint space | | narrowing and mild marginal spurring are present. There is no acute | | fracture, osteochondral lesion or focal osseous destruction. | | | | Right knee: Mild medial and lateral tibiofemoral joint space | | narrowing are present. There is no osteochondral lesion, acute | | fracture or focal osseous destruction. | | | | IMPRESSION: | | Unchanged severe medial left knee tibiofemoral posttraumatic joint | | degeneration with depression of the medial tibial plateau from prior | | fracture. | | | | | | REPORT SIGNED IN OTHER VENDOR SYSTEM 02/12/2016 | | Reported by: ADALI SHEN MD | | | | Electronically signed by: ADALI SHEN MD | | | | Transcribed Date/Time: 02/12/2016 16:23 | | Operating Room Aide: FLUENCY | | | | | | | + + + +---------+ + + | Performing | Address | City/State/Zipcode | Phone Number | | Organization | | | | + +---------+ + + | [facility] | | | | RADIOLOGY | | | | + +---------+ + + X-RAY PELVIS 1 VIEW (02/12/2016 4:03 PM PDT) + + | Specimen | + + | | + + + + + | Narrative | Performed At | + + + | [facility] [address] [place] [address] | [facility] | | [address] Name: PADMINI LILLY Phys: | DEPARTMENT OF | | RUSSELL HERNANDEZ : 1950 Sex: F | RADIOLOGY | | CSN: [id number] MR# [id number] | | | Exam Date: 02/12/2016 EXAM: X-RAY PELVIS 1 VIEW | | | CLINICAL HISTORY: Pain COMPARISON: 01/01/2015 TECHNIQUE: AP | | | view of the pelvis was obtained. FINDINGS: A right total hip | | | arthroplasty with a single acetabular interlocking screw is present | | | in satisfactory position and there is no hardware | | | complication. Mild left hip joint space narrowing, acetabular and | | | femoral head marginal spurring are present. There is bilateral | | | moderate, right greater than left SI joint degeneration. The | | | symphysis pubis is intact. There is no acute fracture or focal | | | osseous destruction. IMPRESSION: Intact right total hip | | | arthroplasty without hardware complication. Mild left hip joint | | | degeneration. REPORT SIGNED IN OTHER VENDOR SYSTEM | | | 02/12/2016 Reported by: ADALI SHEN MD Electronically | | | signed by: ADALI SHEN MD Transcribed Date/Time: 02/12/2016 | | | 16:03 Operating Room Aide: FLUENCY | | + + + + + | Procedure Note | + + | Interface, Radiology Results - 02/12/2016 4:08 PM [facility] | | [address] | | [place] [address] | | | | | | Name: MAXXPADMINI | | Phys: RUSSELL HERNANDEZ | | : 1950 Sex: F | | CSN: [id number] | | MR# [id number] | | Exam Date: 02/12/2016 | | | | EXAM: | | X-RAY PELVIS 1 VIEW | | | | CLINICAL HISTORY: | | Pain | | | | COMPARISON: | | 01/01/2015 | | | | TECHNIQUE: | | AP view of the pelvis was obtained. | | | | FINDINGS: | | A right total hip arthroplasty with a single acetabular interlocking | | screw is present in satisfactory position and there is no hardware | | complication. Mild left hip joint space narrowing, acetabular and | | femoral head marginal spurring are present. There is bilateral | | moderate, right greater than left SI joint degeneration. The | | symphysis pubis is intact. There is no acute fracture or focal | | osseous destruction. | | | | IMPRESSION: | | Intact right total hip arthroplasty without hardware complication. | | Mild left hip joint degeneration. | | | | | | REPORT SIGNED IN OTHER VENDOR SYSTEM 02/12/2016 | | Reported by: ADALI SHEN MD | | | | Electronically signed by: ADALI SHEN MD | | | | Transcribed Date/Time: 02/12/2016 16:03 | | Operating Room Aide: FLUENCY | | | | | | | + + + +---------+ + + | Performing | Address | City/State/Zipcode | Phone Number | | Organization | | | | + +---------+ + + | [facility] | | | | | RADIOLOGY | | | | + +---------+ + + documented in this encounter Visit Diagnoses + + | Diagnosis | + + | Left knee pain, unspecified chronicity - Primary | + + | Primary osteoarthritis of one knee, left | + + | Hip pain, bilateral Pain in joint, pelvic region and thigh | + + documented in this encounter Administered Medications + +--------+ +-------+------+-------+ | Medication Order | MAR | Action | Dose | Rate | Site | | | Action | Date | | | | + +--------+ +-------+------+-------+ | Methylprednisolone Acetate 40 | Given | 02/12/2016 | 40 mg | | Left | | Mg Intraarticular | | 15:25 | | | Knee | | | | PDT | | | | + +--------+ +-------+------+-------+ +---+---+ | | | +---+---+ documented in this encounter
--- OUTSIDE RECORDS SUMMARY | ~2019-08-14 | XMS | Encounter Summary ---
Demographics + + + | Address | [address] | | | [place] [address] | + + + | Home Phone | | + + + | Preferred Language | Unknown | + + + | Marital Status | Single | + + + | Alevism Affiliation | Unknown | + + + | Race | | + + + | Ethnic Group | Not or | + + + Author + + + | Author | [facility] | + + + | Organization | [facility] | + + + | Address | Unknown | + + + | Phone | Unavailable | + + + Support + + + + + | Name | Relationship | Address | Phone | + + + + + | Bessy Aviles | ECON | [address] | | | | | [id number], [place] | | | | | [address] | | + + + + + Care Team Providers + +------+ + | Care Cabinet Worker Name | Role | Phone | + +------+ + PCP | Unavailable | + +------+ + Encounter Details +--------+ + + + + | Date | Type | Department | Care Team | Description | +--------+ + + + + | 08/22/ | Results | [facility] | Triston Hernandez, | | | 2013 | Only | Department | MD Jordy Reyes | | | | | | [place] | | | | | | [address] | | | | | | [phone] | | | | | | | | +--------+ + + + + Social History + +-------+ +--------+------+ | Tobacco Use | Types | Packs/Day | Years | Date | | | | | Used | | + +-------+ +--------+------+ | Never Assessed | | | | | + +-------+ +--------+------+ + + + | Sex Assigned at [...] + + documented as of this encounter Plan of Treatment Not on filedocumented as of this encounter Procedures + +--------+ + + + | Procedure Name | Priori | Date/Time | Associated Diagnosis | Comments | | | ty | | | | + +--------+ + + + | ORT HIP 1V | Routin | 08/22/2014 | | Results for this | | [address] | e | 3:01 PM | | procedure are in the | | | | PDT | | results section. | + +--------+ + + + | ORT PELVIS | Routin | 08/22/2014 | | Results for this | | [address] | e | 3:01 PM | | procedure are in the | | | | PDT | | results section. | + +--------+ + + + documented in this encounter Results ORT HIP 1V [id number] (08/22/2014 3:01 PM PDT) + + | Specimen | + + | | + + + + + | Narrative | Performed At | + + + | EXAM: SINGLE VIEW OF THE PELVIS AND ONE-VIEW OF THE RIGHT HIP | [facility] | | CLINICAL HISTORY: RIGHT HIP PAIN TECHNIQUE: AP view of the pelvis and | DEPARTMENT OF | | a frog-leg view of the right hip were obtained. COMPARISON: None | RADIOLOGY | | available FINDINGS: Severe narrowing of the superolateral aspect | | | of the right hip joint is present with subchondral sclerosis and | | | large subchondral cysts, greater within the femoral head. There is | | | a right acetabular spurring/overcoverage. Mild left hip joint | | | space narrowing is present with mild lateral acetabular rim/femoral | | | head spurring. Bilateral moderate SI joint degeneration is noted, | | | right greater than left. The symphysis pubis is | | | intact. Moderate to severe L4-L5 and L5-S1 disc space narrowing, | | | endplate spurring and sclerosis are noted. IMPRESSION: Severe | | | right superolateral hip osteoarthritis. | | + + + + + | Procedure Note | + + | Interface, Radiology Results - 07/31/2015 10:51 AM PDT EXAM: SINGLE VIEW OF THE | | PELVIS AND ONE-VIEW OF THE RIGHT HIPCLINICAL HISTORY: RIGHT HIP PAINTECHNIQUE: AP view | | of the pelvis and a frog-leg view of the right hipwere obtained.COMPARISON: None | | availableFINDINGS: Severe narrowing of the superolateral aspect of the righthip joint | | is present with subchondral sclerosis and large subchondralcysts, greater within the | | femoral head. There is a right acetabularspurring/overcoverage. Mild left hip joint | | space narrowing ispresent with mild lateral acetabular rim/femoral head | | spurring.Bilateral moderate SI joint degeneration is noted, right greater thanleft. The | | symphysis pubis is intact. Moderate to severe L4-L5 andL5-S1 disc space narrowing, | | endplate spurring and sclerosis arenoted.IMPRESSION: Severe right superolateral hip | | osteoarthritis. | |left. The symphysis pubis is intact. Moderate to severe L4-L5 and | |L5-S1 disc space narrowing, endplate spurring and sclerosis are | |noted. | |IMPRESSION: Severe right superolateral hip osteoarthritis. | + + + +---------+ + + | Performing | Address | City/State/Zipcode | Phone Number | | Organization | | | | + +---------+ + + | [facility] | | | | [facility] | | | | + +---------+ + + ORT PELVIS [id number] (08/22/2014 3:01 PM PDT) + + | Specimen | + + | | + + + + + | Narrative | Performed At | + + + | EXAM: SINGLE VIEW OF THE PELVIS AND ONE-VIEW OF THE RIGHT HIP | [facility] | | CLINICAL HISTORY: RIGHT HIP PAIN TECHNIQUE: AP view of the pelvis and | DEPARTMENT OF | | a frog-leg view of the right hip were obtained. COMPARISON: None | RADIOLOGY | | available FINDINGS: Severe narrowing of the superolateral aspect | | | of the right hip joint is present with subchondral sclerosis and | | | large subchondral cysts, greater within the femoral head. There is | | | a right acetabular spurring/overcoverage. Mild left hip joint | | | space narrowing is present with mild lateral acetabular rim/femoral | | | head spurring. Bilateral moderate SI joint degeneration is noted, | | | right greater than left. The symphysis pubis is | | | intact. Moderate to severe L4-L5 and L5-S1 disc space narrowing, | | | endplate spurring and sclerosis are noted. IMPRESSION: Severe | | | right superolateral hip osteoarthritis. | | + + + + + | Procedure Note | + + | Interface, Radiology Results - 07/31/2015 10:51 AM PDT EXAM: SINGLE VIEW OF THE | | PELVIS AND ONE-VIEW OF THE RIGHT HIPCLINICAL HISTORY: RIGHT HIP PAINTECHNIQUE: AP view | | of the pelvis and a frog-leg view of the right hipwere obtained.COMPARISON: None | | availableFINDINGS: Severe narrowing of the superolateral aspect of the righthip joint | | is present with subchondral sclerosis and large subchondralcysts, greater within the | | femoral head. There is a right acetabularspurring/overcoverage. Mild left hip joint | | space narrowing ispresent with mild lateral acetabular rim/femoral head | | spurring.Bilateral moderate SI joint degeneration is noted, right greater thanleft. The | | symphysis pubis is intact. Moderate to severe L4-L5 andL5-S1 disc space narrowing, | | endplate spurring and sclerosis arenoted.IMPRESSION: Severe right superolateral hip | | osteoarthritis. | |left. The symphysis pubis is intact. Moderate to severe L4-L5 and | |L5-S1 disc space narrowing, endplate spurring and sclerosis are | |noted. | |IMPRESSION: Severe right superolateral hip osteoarthritis. | + + + +---------+ + + | Performing | Address | City/State/Zipcode | Phone Number | | Organization | | | | + +---------+ + + | [facility] | | | | | RADIOLOGY | | | | + +---------+ + + documented in this encounter Visit Diagnoses Not on filedocumented in this encounter"
--- OUTSIDE RECORDS SUMMARY | ~2019-08-14 | XMS | Clinical Summary ---
Demographics + + + | Address | [address] | | | [place] [address] | + + + | Home Phone | | + + + | Preferred Language | Unknown | + + + | Marital Status | Unknown | + + + | Latter Day Affiliation | Unknown | + + + | Race | Unknown | + + + | Ethnic Group | Unknown | + + + Author + + + | Author | [facility] | | | and [place] | + + + | Organization | [facility] | | | and [place] | + + + | Address | Unknown | + + + | Phone | Unavailable | + + + Care Team Providers + +------+ + | Care Rodeo Rider Name | Role | Phone | + +------+ + PCP | Unavailable | + +------+ + Allergies No Known Allergies Medications + + + +---------+------+------+-------+ | Medication | Sig | Dispensed | Refills | Star | End | Statu | | | | | | t | Date | s | | | | | | Date | | | + + + +---------+------+------+-------+ | amLODIPine | | | 0 | 09/2 | | Activ | | (NORVASC) 5 mg | | | | 9/20 | | e | | tablet | | | | 15 | | | + + + +---------+------+------+-------+ | cetirizine | Take 10 mg by mouth. | | 0 | 10/2 | | Activ | | (ZYRTEC) 10 mg | | | | 3/20 | | e | | tablet | | | | 18 | | | + + + +---------+------+------+-------+ | levothyroxine | | | 0 | 09/2 | | Activ | | (SYNTHROID) 88 mcg | | | | 9/20 | | e | | tablet | | | | 15 | | | + + + +---------+------+------+-------+ | lovastatin | Take 20 mg by mouth | | 0 | 10/2 | | Activ | | (MEVACOR) 20 mg | nightly. | | | 3/20 | | e | | tablet | | | | 18 | | | + + + +---------+------+------+-------+ | Cyanocobalamin | Take by mouth. | | 0 | 10/2 | | Activ | | (B-12) 2500 MCG TABS | | | | 3/20 | | e | | | | | | 18 | | | + + + +---------+------+------+-------+ | cholecalciferol | Take 1,000 Units by | | 0 | 10/2 | | Activ | | (VITAMIN D-3) 1,000 | mouth daily. | | | 3/20 | | e | | units capsule | | | | 18 | | | + + + +---------+------+------+-------+ Active Problems Not on file Social History + +-------+ +--------+------+ | Tobacco [...] recent travel history available. | + + Last Filed Vital Signs + + + + | Vital Sign | Reading | Time Taken | + + + + | Blood Pressure | - | - | + + + + | Pulse | - | - | + + + + | Temperature | - | - | + + + + | Respiratory Rate | - | - | + + + + | Oxygen Saturation | - | - | + + + + | Inhaled Oxygen | - | - | | Concentration | | | + + + + | Weight | 74.8 kg (165 lb) | 08/29/20181125 PDT | + + + + | Height | 167.6 cm (5' 6") | 08/29/20181125 PDT | + + + + | Body Mass Index | 26.63 | 08/29/2018 1126 PDT | + + + + Plan of Treatment + + + + + | Health Maintenance | Due Date | Last Done | Comments | + + + + + | Hepatitis C | | | | | Screening | 9 | | | + + + + + | Vaccine: | | | | | Dtap/Tdap/Td (1 - | 8 | | | | Tdap) | | | | + + + + + | Colorectal Cancer | | | | | Screening | 9 | | | | (Colonoscopy) | | | | + + + + + | Vaccine: Zoster (1 | | | | | of 2) | 9 | | | + + + + + | Breast Cancer | | | | | Screening | 4 | | | + + + + + | Vaccine: | | | | | Pneumococcal 65+ | 4 | | | | Low/Medium Risk (1 | | | | | of 2 - PCV13) | | | | + + + + + | Adult Annual | | | | | Wellness Visit | 9 | | | + + + + + | Vaccine: Influenza | | | | | (#1) | 9 | | | + + + + + Results Not on filefrom Last 3 Months
--- OUTSIDE RECORDS SUMMARY | ~2019-08-14 | XMS | Clinical Summary ---
Demographics + + + | Address | [address] | | | [place] [address] | + + + | Home Phone | | + + + | Preferred Language | Unknown | + + + | Marital Status | Unknown | + + + | Mormonism Affiliation | Unknown | + + + | Race | Unknown | + + + | Ethnic Group | Unknown | + + + Author + + + | Author | [facility] (Historical as of | | | 06-23-19) | + + + | Organization | [facility] (Historical as of | | | 06-23-19) | + + + | Address | Unknown | + + + | Phone | Unavailable | + + + Support +--------+ +---------+ + | Name | Relationship | Address | Phone | +--------+ +---------+ + | No,One | ECON | Unknown | | +--------+ +---------+ + Care Team Providers + +------+ + | Care Document Design Specialist Name | Role | Phone | + +------+ + | Alisa Jaffe Family | PP | | + +------+ + Allergies No Known Allergies Current Medications + + +-------+---------+------+------+-------+ | Prescription | Sig. | Disp. | Refills | Star | End | Statu | | | | | | t | Date | s | | | | | | Date | | | + + +-------+---------+------+------+-------+ | amLODIPine | | | | 09/2 | | Activ | | (NORVASC) 5 MG | | | | 9/20 | | e | | tablet | | | | 15 | | | + + +-------+---------+------+------+-------+ | cetirizine | Take 10 mg by mouth. | | | | | Activ | | (ZYRTEC) 10 MG | | | | | | e | | tablet | | | | | | | + + +-------+---------+------+------+-------+ | levothyroxine | | | | 09/2 | | Activ | | (SYNTHROID) 88 MCG | | | | 9/20 | | e | | tablet | | | | 15 | | | + + +-------+---------+------+------+-------+ | lovastatin | Take 20 mg by mouth | | | | | Activ | | (MEVACOR) 20 MG | nightly. | | | | | e | | tablet | | | | | | | + + +-------+---------+------+------+-------+ | Cyanocobalamin | Take by mouth. | | | | | Activ | | (B-12) 2500 MCG TABS | | | | | | e | + + +-------+---------+------+------+-------+ | Cholecalciferol | Take 1,000 Units by | | | | | Activ | | 1000 units capsule | mouth daily. | | | | | e | + + +-------+---------+------+------+-------+ Active Problems No known active problems Social History + +-------+ +--------+------+ | Tobacco [...] on file | | + + + Last Filed Vital Signs + [...] Weight | 74.8 kg (165 lb) | 08/29/2018 11:25 AM PDT | + + + + | Height | 167.6 cm (5' 6") | 08/29/2018 11:25 AM PDT | + + + + | Body Mass Index | 26.63 | 08/29/2018 11:25 AM PDT | + + + + Plan [...] Screening | 9 | | | | (Mammogram) | | | | + + + + + | Colon Cancer | | | | | Screening | 9 | | | | (Colonoscopy) | | | | + + + + + | Vaccine: Zoster (1 | | | | | of 2) | 9 | | | + + + + + | DEXA SCAN SCREENING | | | | | | 4 | | | + + [...] Results Not on filefrom Last 3 Months Insurance + +--------+ +------+-------+ + | Payer | Benefi | Subscriber | Type | Phone | Address | | | t Plan | ID | | | | | | / | | | | | | | Group | | | | | + +--------+ +------+-------+ + | MEDICARE | MEDICA | [id number] | | | [address] | | | RE | | | | [place] [id number] | | | IP-OP | | | | | + +--------+ +------+-------+ + | MEDICAID | EASTER | [id number] | | | [address] | | | N | | | | [place] | | | [place] | | | | [address] | | | [employer] | | | | | + +--------+ +------+-------+ + + +--------+ +--------+ + + | Guarantor Name | Accoun | Relation to | Date | Phone | Billing Address | | | t Type | Patient | of | | | | | | | | | | + +--------+ +--------+ + + | PADMINI LILLY | Person | Self [birth year] | Home: | [address] | | | al/Fam | | 1950 | [id number] [place] | | | [place] | | | [phone] | [place] [address] | + +--------+ +--------+ + +
--- OUTSIDE RECORDS SUMMARY | ~2019-08-14 | XMS | Encounter Summary ---
Demographics + + + | Address | [address] | | | [place] [address] | + + + | Home Phone | | + + + | Preferred Language | Unknown | + + + | Marital Status | Single | + + + | Bahai Affiliation | Unknown | + + + | Race | | + + + | Ethnic Group | Not or | + + + Author + + + | Author | [facility] | + + + | Organization | [facility] | + + + | Address | Unknown | + + + | Phone | Unavailable | + + + Support + + + + + | Name | Relationship | Address | Phone | + + + + + | Bessy Aviles | ECON | [address] | | | | | [id number], [place] | | | | | [address] | | + + + + + Care Team Providers + +------+ + | Care Global Account Executive Name | Role | Phone | + +------+ + PCP | Unavailable | + +------+ + Encounter Details +--------+ + + + + | Date | Type | Department | Care Team | Description | +--------+ + + + + | 11/12/ | Results | [facility] | Triston Hernandez, | | | 2014 | Only | Department | MD Jordy Reyes | | | | | | [place] | | | | | | [address] | | | | | | [phone] | | | | | | | [...] | + +--------+ + + + | HEMATOCRIT | Routin | 11/14/2014 | | Results for this | | | e | 5:46 AM | | procedure are in the | | | | PST | | results section. | + +--------+ + + + | HEMATOCRIT | Routin | 11/13/2014 | | Results for this | | | e | 5:13 AM | | procedure are in the | | | | PST | | results section. | + +--------+ + + + | CAP GLU,POC | Routin | 11/12/2014 | | Results for this | | | e | 7:20 AM | | procedure are in the | | | | PST | | results section. | + +--------+ + + + documented in this encounter Results HEMATOCRIT (11/14/2014 5:46 AM PST) + + + + + + | Component | Value | Ref Range | Performed | Pathologist | | | | | At | Signature | + + + + + + | HEMATOCRIT | 24.9Comment: @RESULTS | 37.0 - 45.0 % | [facility] | | | | CALLED TO TEREZA TOUSSAINT AT | | A MEDICAL | | | | 0651. JOSELYN@Repeated | | CENTER | | | | by: Jeremy Youssef 11/14/14 | | | | | | 0649@Prev Result: % | | | | | | | | | | + + + + + + + + | Specimen | + + | | + + + + + + + | Performing | Address | City/State/Zipcode | Phone Number | | Organization | | | | + + + + + | [facility] | | | | | LABORATORY | | | | + + + + + | [facility] | [address] [place] | [place] [address] | [phone] | | MEDICAL CENTER | Streets | | | + + + + + HEMATOCRIT (11/13/2014 5:13 AM PST) + + + + + + | Component | Value | Ref Range | Performed | Pathologist | | | | | At | Signature | + + + + + + | HEMATOCRIT | 28.9 (L) | 37.0 - 45.0 % | [facility] | | | | | | A MEDICAL | | | | | | CENTER | | + + + + + + + + | Specimen | + + | | + + + + + + + | Performing | Address | City/State/Zipcode | Phone Number | | Organization | | | | + + + + + | [facility] | [place] | [place] [address] | [phone] | | [facility] | Streets | | | + + + + + CAP GLU,POC (11/12/2014 7:20 AM PST) + + + + + + | Component | Value | Ref Range | Performed | Pathologist | | | | | At | Signature | + + + + + + | BLOOD | 98Comment: Meter ID: | 70 - 110 MG/DL | [facility] | | | GLUCOSE, | [id number]: | | OF CARE | | | POC | [id number] Jinny Stoddard | | TESTING | | | |Visiting Teacher: [id number] Jinny Stoddard | | | | | | | | | | + + + + + + + + | Specimen | + + | | + + + +---------+ + + | Performing | Address | City/State/Zipcode | Phone Number | | Organization | | | | + +---------+ + + | [facility] | | | | | TESTING | | | | + +---------+ + + documented in this encounter Visit Diagnoses Not on filedocumented in this encounter"
--- OUTSIDE RECORDS SUMMARY | ~2019-08-14 | XMS | Clinical Summary ---
Demographics + + + | Address | [address] | | | [place] [address] | + + + | Home Phone | | + + + | Preferred Language | Unknown | + + + | Marital Status | Unknown | + + + | Anglican Affiliation | Unknown | + + + | Race | Unknown | + + + | Ethnic Group | Unknown | + + + Author + + + | Author | [facility] | | | and [place] | + + + | Organization | [facility] | | | and [place] | + + + | Address | Unknown | + + + | Phone | Unavailable | + + + Care Team Providers + +------+ + | Care Paediatric Surgeon Name | Role | Phone | + [...]
--- OUTSIDE RECORDS SUMMARY | ~2019-08-14 | XMS | Encounter Summary ---
Demographics + + + | Address | [address] | | | [place] [address] | + + + | Home Phone | | + + + | Preferred Language | Unknown | + + + | Marital Status | Single | + + + | Latter Day Affiliation | Unknown | + + + | Race | | + + + | Ethnic Group | Not or | + + + Author + + + | Author | [facility] | + + + | Organization | [facility] | + + + | Address | Unknown | + + + | Phone | Unavailable | + + + Support + + + + + | Name | Relationship | Address | Phone | + + + + + | Bessy Aviles | LIAT | [address] | | | | | [id number], [place] | | | | | [address] | | + + + + + Care Team Providers + +------+ + | Care Cleaner Furniture Name | Role | Phone | + +------+ + | Radha Messer PA-C | PCP | | + +------+ + Encounter Details +--------+ + + + + | Date | Type | Department | Care Team | Description | +--------+ + + + + | 02/11/ | Hospital | [facility] | | | | 2015 | Encounter | Sports Medicine & | | | | | | Orthopaedic Surgery | | | | | | [address] | | | | | | [place] | | | | | | [address] | | | | | | [phone] | | | +--------+ + + + [...] + + documented as of this encounter Medications at Time of Discharge + + + +---------+ + + | Medication | Sig | Dispensed | Refills | Start | End Date | | | | | | Date | | + + + +---------+ + + | amLODIPine 5 mg | Take 5 mg by mouth | | 0 | 02/09/20 | | | oral tablet | once daily. | | | 16 | | + + + +---------+ + + | atorvastatin 40 mg | Take 40 mg by mouth | | 0 | 02/09/20 | | | oral tablet | once daily. | | | 16 | | + + + +---------+ + + | levothyroxine 88 | Take 88 mcg by mouth | | 0 | 02/09/20 | | | mcg oral tablet | once daily. | | | 16 | | + + + +---------+ + + documented as of this encounter Plan of Treatment Not on filedocumented as of this encounter Procedures + +--------+ + + + | Procedure Name | Priori | Date/Time | Associated Diagnosis | Comments | | | ty | | | | + +--------+ + + + | X-RAY KNEE 2 VIEWS | Routin | 02/12/2016 | Left knee pain, | Results for this | | LEFT | e | 4:23 PM | unspecified | procedure are in the | | | | PDT | chronicity | results section. | + +--------+ + + + | X-RAY PELVIS 1 VIEW | Routin | 02/12/2016 | Hip pain, | Results for this | | | e | 4:03 PM | bilateral | procedure are in the | | | | PDT | | results section. | + +--------+ + + + documented in this encounter Results X-RAY KNEE 2 VIEWS LEFT (02/12/2016 4:23 PM PDT) + + | Specimen | + + | | + + + + + | Narrative | Performed At | + + + | [facility] [address] [place] [address] | [facility] | | [id number] Name: PADMINI LILLY Phys: | DEPARTMENT OF | | RUSSELL QUIROZ : 1950 Sex: F | RADIOLOGY | | CSN: [id number] MR# [id number] | | | Exam Date: 02/12/2016 EXAM: [...] Transcribed | | | Date/Time: 02/12/2016 16:23 Controller Repairer And Tester: FLUENCY | | + + + + + | Procedure Note | + + | Interface, Radiology Results - 02/12/2016 4:[address] [facility] | | [address] | | [place] [address] | | | | | | Name: PADMINI LILLY | | Phys: RUSSELL QUIROZ | | : 1950 Sex: F | | CSN: [id number] | | MR# [id number] | | Exam Date: 02/12/2016 | | [...] | Transcribed Date/Time: 02/12/2016 16:23 | | Controller Repairer And Tester: FLUENCY | | | | | | [...] Performed At | + + + | [facility] [address] [place] [address] | [facility] | | [id number] Name: PADMINI LILLY Phys: | DEPARTMENT OF | | RUSSELL QUIROZ : 1950 Sex: F | RADIOLOGY | | CSN: [id number] MR# [id number] | | | Exam Date: 02/12/2016 EXAM: [...] Transcribed Date/Time: 02/12/2016 | | | 16:03 Controller Repairer And Tester: CORI | | + + + + + | Procedure Note | + + | Interface, Radiology Results - 02/12/2016 4:[address] [facility] | | [address] [place] [address] | | [place] [address] | | | | | | Name: PADMINI LILLY | | Phys: RUSSELL QUIROZ [place] | | : 1950 Sex: F | | CSN: [id number] | | MR# [id number] | | Exam Date: 02/12/2016 | | [...] | Transcribed Date/Time: 02/12/2016 16:03 | | Controller Repairer And Tester: CORI | | | | | | | [...] + | Left knee pain, unspecified chronicity | + + | Hip pain, bilateral Pain in joint, pelvic region and thigh | + + documented in this encounter"
--- OUTSIDE RECORDS SUMMARY | ~2019-08-14 | XMS | Encounter Summary ---
Demographics + + + | Address | [address] | | | [place] [address] | + + + | Home Phone | | + + + | Preferred Language | Unknown | + + + | Marital Status | Single | + + + | Yazidism Affiliation | Unknown | + + + | Race | | + + + | Ethnic Group | Not or | + + + Author + + + | Author | [facility] | + + + | Organization | [facility] | + + + | Address | Unknown | + + + | Phone | Unavailable | + + + Support + + + + + | Name | Relationship | Address | Phone | + + + + + | Bessy Aviles | LITA | [address] | | | | | [id number], [place] | | | | | [address] | | + + + + + Care Team Providers + +------+ + | Care Corporate Compliance Director Name | Role | Phone | + +------+ + | Radha Messer PA-C | PCP | | + +------+ + Encounter Details +--------+ + + + + | Date | Type | Department | Care Team | Description | +--------+ + + + + | 11/12/ | Discharge | [facility] [address] | Triston Hernandez, | Discharge Summaries | | 2014 | Summary-Tra | [address] | [address] | | | | n[address] | [place] | [place] | | | | | [address] | [address] | | | | | | [phone] | | | | | | | [...] + + documented as of this encounter Discharge Summaries Triston Hernandez MD - 11/14/2014 8:27 AM [facility] DISCHARGE SUMMARY [address], [place] [address] PADMINI LILLY DATE OF ADMISSION: 11/12/2014 PRIMARY CARE PROVIDER: FINAL DIAGNOSIS: Degenerative joint disease, right hip. POSTOPERATIVE DIAGNOSIS: Degenerative joint disease, right hip. PROCEDURE: Right total hip arthroplasty. HOSPITAL COURSE: The patient had her hip replaced without incident. Her postoperative course has been quite uneventful. Her pain relief has been significant. She is discharged home, with home health being set up for physical therapy, oxycodone for pain, and Lovenox 30 mg b.i.d. through postop day 10 for prophylaxis. We are making efforts to make sure that the home health nurses, as well as the patient, and the patient's care giving friend, all understand that if her wound seeps, drains beyond the third postoperative day, we would like to have Lovenox discontinued, my office notified, and her to start on aspirin [address] of Lovenox, and take this for the next 30 days. She has a standard precautions for posterior-lateral approach hip replacement. Follow up appointment in my office in two weeks for staple removal. OMAR/Letty /[id number] CC: PADMINI LILLY Electronically Signed 11/19/14 1137 MD MAXX Bazan VICTORIA [id number] : 48 [id number] ADMIT DATE: 11/12/14 DISCHARGE DATE: 11/14/14 documented in this encounter Plan of Treatment Not on filedocumented as of this encounter Visit Diagnoses Not on filedocumented in this encounter"
--- OUTSIDE RECORDS SUMMARY | ~2019-08-14 | XMS | Clinical Summary ---
Demographics + + + | Address | [address] | | | [place] [address] | + + + | Home Phone | | + + + | Preferred Language | Unknown | + + + | Marital Status | Single | + + + | Bahai Affiliation | Unknown | + + + | Race | | + + + | Ethnic Group | Not or | + + + Author + + + | Author | [facility] | + + + | Organization | [facility] | + + + | Address | Unknown | + + + | Phone | Unavailable | + + + Support + + + + + | Name | Relationship | Address | Phone | + + + + + | Bessy Aviles | ECON | [address] | | | | | [id number], [place] | | | | | [address] | | + + + + + Care Team Providers + +------+ + | Care Transit Police Officer Name | Role | Phone | + +------+ + | Radha Messer PA-C | PCP | | + +------+ + Source Comments TAD is fully live on both [facility] Ambulatory and [facility] InPatient[facility] Allergies No Known Allergies Medications + + + +---------+------+------+-------+ | Medication | Sig | Dispensed | Refills | Star | End | Statu | | | | | | t | Date | s | | | | | | Date | | | + + + +---------+------+------+-------+ | amLODIPine 5 mg | Take 5 mg by mouth | | 0 | 04/0 | | Activ | | oral tablet | once daily. | | | 4/20 | | e | | | | | | 16 | | | + + + +---------+------+------+-------+ | atorvastatin 40 mg | Take 40 mg by mouth | | 0 | 04/0 | | Activ | | oral tablet | once daily. | | | 420 | | e | | | | | | 16 | | | + + + +---------+------+------+-------+ | levothyroxine 88 | Take 88 mcg by mouth | | 0 | 04/0 | | Activ | | mcg oral tablet | once daily. | | | 420 | | e | | | | | | 16 | | | + + + +---------+------+------+-------+ Active Problems Not on file Immunizations + + + + | Name | Administration Dates | Next Due | + + + + | Methylprednisolone | 02/12/2016 | | | Acetate 40 Mg | | | + + + + Family History + + +------+ + | Medical History | Relation | Name | Comments | + + +------+ + | Hypertension | Maternal | | | | | Grandfath | | | | | er | | | + + +------+ + | Hypertension | Mother | | | + + +------+ + + +------+ + + | Relation | Name | Status | Comments | + +------+ + + | Maternal Grandfather | | | | + +------+ + + | Mother | | | | + +------+ + + Social History + +-------+ +--------+------+ [...] | | + + + + + Plan of Treatment + + + + + | Health Maintenance | Due Date | Last Done | Comments | + + + + + | Pneumococcal | | | | | vaccination (1 of 2 | 4 | | | | - PCV13) | | | | + + + + + | Influenza (Flu) | | | | | vaccination (#1) | 9 | | | + + + + + Results Not on filefrom Last 3 Months Insurance + +--------+ +--------+ + +--------+ | Payer | Benefi | Subscriber | Effect | Phone | Address | Type | | | t Plan | ID | kate | | | | | | / | | Dates | | | | | | Group | | | | | | + +--------+ +--------+ + +--------+ | MEDICARE | MEDICA | xxxxxxxxxx | 05/07/20 | [phone] | [address] | Medica | | | RE A & | | 14-Pre | [address] | [address] | | | B | | sent | | [place], [place] | | | | | | | | [address] | | + +--------+ +--------+ + +--------+ | MANAGER INTERNSHIP MEDICAID | MANAGER INTERNSHIP | xxxxxxxx | Effect | | | Medica | | | [place] | | kate | | | id | | | [place] | | for | | | | | | | | all | | | | | | | | dates | | | | + +--------+ +--------+ + +--------+ + +--------+ +--------+ + + | Guarantor Name | Accoun | Relation to | Date | Phone | Billing Address | | | t Type | Patient | of | | | | | | | | | | + +--------+ +--------+ + + | Padmini Noguera | Person | Self [birth year] | [address] | | | [place] | | 1950 | [phone] | [address] | | | [place] | | | [address] (Home) | [place] [address] | + +--------+ +--------+ + +"
--- OUTSIDE RECORDS SUMMARY | ~2019-08-14 | XMS | Encounter Summary ---
Demographics + + + | Address | [address] | | | [place] [address] | + + + | Home Phone | | + + + | Preferred Language | Unknown | + + + | Marital Status | Single | + + + | Temple Affiliation | Unknown | + + + | Race | | + + + | Ethnic Group | Not or | + + + Author + + + | Author | [facility] | + + + | Organization | [facility] | + + + | Address | Unknown | + + + | Phone | Unavailable | + + + Support + + + + + | Name | Relationship | Address | Phone | + + + + + | Bessy Aviles | ECON | [address] | | | | | [id number], [place] | | | | | [address] | | + + + + + Care Team Providers + +------+ + | Care Patternmaker Plastics Name | Role | Phone | + [...] [place] | | | | | | [address] | | | | | | [phone] | | | | | | | [...] | | Results for this | | [address] | e | 3:01 PM | | procedure are in the | | | | PDT | | results section. | + +--------+ + + + | ORT PELVIS | Routin | 08/22/2014 | | Results for this | | [address] | e | 3:01 PM | | procedure are in the | | | | PDT | | results section. | + +--------+ + + + documented in this encounter Results ORT HIP [id number] [id number] (08/22/2014 3:01 PM PDT) + + | [...] | + +---------+ + + ORT PELVIS [id number] (08/22/2014 3:01 PM PDT) + + | [...]
--- OUTSIDE RECORDS SUMMARY | ~2019-08-14 | XMS | Encounter Summary ---
Demographics + + + | Address | [address] | | | [place] [address] | + + + | Home Phone | | + + + | Preferred Language | Unknown | + + + | Marital Status | Single | + + + | Tenriism Affiliation | Unknown | + + + | Race | | + + + | Ethnic Group | Not or | + + + Author + + + | Author | [facility] | + + + | Organization | [facility] | + + + | Address | Unknown | + + + | Phone | Unavailable | + + + Support + + + + + | Name | Relationship | Address | Phone | + + + + + | Bessy Aviles | LITA | [address] | | | | | [id number], [place] | | | | | [id number] | | + + + + + Care Team Providers + +------+ + | Care Photographer Apprentice Name | Role | Phone | + +------+ + PCP | Unavailable | + +------+ + Encounter Details +--------+ + + + + | Date | Type | Department | Care Team | Description | +--------+ + + + + | 11/12/ | Procedure - | [facility] | Triston Hernandez, | Operative Report | | 2015 | | E The | MD Jordy Reyes | | | | Transcribed | [place] | [place] | | | | | [address] | [address] | | | | | | [phone] | | | | | | | [...] | + +--------+ + + + | OPERATION RECORD | | 11/12/2014 | | Results for this | | | | 6:10 AM | | procedure are in the | | | | PST | | results section. | + +--------+ + + + documented in this encounter Results OPERATION RECORD (11/12/2014 6:10 AM PST) + + | Transcriptions | + + | 11/12/2014 1:30 PM [facility] | | REPORT OF [id number] [place] [address] | | LOYD LILLY: Triston Hernandez M.D.PREOPERATIVE DIAGNOSIS: Degenerative | | joint disease right hip.POSTOP DIAGNOSIS: Degenerative joint disease right | | hip.PROCEDURE: Right total hip arthroplasty, Angela ML taper, 52 Continuum shell, | | 36head neutral liner, size 6 mL taper, minus 3.5 head neck length for a 36 | | head.INDICATIONS: Padmini has debilitating right hip pain. It makes her walk with | | anextremely antalgic gait, with obliquity of her pelvis. She has a painful left kneeon | | the opposite side that makes ambulation difficult.Preoperative templating has revealed | | that her right leg is somewhat slightlyshorter than her left because of superior | | migration and arthritis. The normal lefthip was templated, and even with a low calcar | | cut, it appeared that with a minus3.5 head and neck length she might be lengthened by a | | couple millimeters. Wetherefore anticipated making a low calcar cut on the right side. | | On the normalleft hip she had quite a bit of offset. It seemed that an extended offset | | wouldperhaps be slightly too much on the left. I therefore felt that if we did not | | haveto medialize too far on the right, we could probably get away with a standardoffset. | | With the lower calcar cut, the templating suggested what we might need angi 7.5 stem on | | the right.DESCRIPTION OF PROCEDURE: The patient was taken to the preoperative holding | | area,site marked, questions answered, taken to the operating room, where because of | | hersmall mouth and position of her teeth intubation was carried out with somedifficulty | | utilizing a fiberoptic. Ultimately it was obtained without incident.She was examined in | | a supine position. The right leg was approximately 1/4 inchshorter than the left. She | | had flexion to 95 degrees, 10 degrees of internalrotation, 35 degrees of external | | rotation, with limited abduction of 30. She wasplaced in the lateral position with the | | left axilla padded and anterior-posteriorpositioner clamps on her pelvis. Her downed | | leg was flexed slightly at the hip andknee and the knees used as a preoperative relative | | bench mynor for leg-lengthening.The right hip was then prepped and draped in a sterile | | fashion. A time-out wastaken. A standard posterior lateral approach was made to the | | hip. The deep fasciawas divided and retracted with a self-retaining retractor. The | | capsular flap withexternal rotators was taken as 1 flap off its insertion on the femur, | | back to the posterior superior acetabulum. The corner of this flap was | | thentagged. The hip was then dislocated with flexion and internal rotation. Thefemoral | | head was extremely deformed and devoid of articular cartilage. The neckwas | | osteotomized and the femur retracted anteriorly. There was a lot of capsulartightness | | that had to be released in order to get acetabular exposure. There was alarge anterior | | superior osteophyte and a large posterior inferior cotyledon. Thelabrum was excised. | | The pulvinar was removed with a curette until we could getinto the cotyloid notch and | | seat well. The transverse acetabular ligament wasidentified and protected for a | | landmark. We began reaming with a 44, medializing.PADMINI [id number] : | | [id number] DATE: 11/12/14I medialized until it looked like I was almost | | flush with the floor. I thenexpanded the reamer. A 51 reamer allowed for a 52 | | Continuum shell to be impacted.We used the transverse acetabular ligament to make sure | | that the inferior aspect ofthe shell was contained deep to the ligament, that the | | acetabular shell wasanteverted in relationship to the transverse ligament, that there | | was some un-coverage posterior superiorly, it was flushed posteriorly and slightly | | countersunkanteriorly by a millimeter or two. A screw was then placed to hold it in | | place.We had excellent purchase with this screw. A trial neutral liner was placed. | | Theanterior osteophyte was resected. Next, attention was directed to the proximalfemur. | | A T-handled seeker was used to identify the canal. It was quite snug. Joanna used a | | [employer] cutter and a lateralizing reamer to make sure we had opened upthe lateral aspect | | proximally. We then began the broach. As mentioned, we hadtemplated for anticipating a | | 7.5. We seated a 5 and 6 broach nicely, and the 7.5seated nicely flush with our calcar | | cut. A reduction was carried out with astandard offset minus 3.5 head and neck. It | | was quite stable. However, it wasobviously slightly long because we had a positive drop | | kick sign, increased softtissue tension, and by measuring against the other leg, while | | still being shorterthan the other knee in this position, we had lengthened her. At this | | point, Ielected to remove the 7.5 broach, countersink the 5 followed by the 6 again. | | The 6was now countersunk about 6 mm and compared to the osteotomy cut. We did a | | trialreduction with this positioning on the 6. And I felt stability was good and rangeof | | motion good, without excessive soft tissue tension. We still had lengthened | | herslightly over the preoperative status. However, I could not get a finger betweenthe | | greater trochanter and the posterior wall of the pelvis, nor between the | | lessertrochanter and the ischium. I felt that we should trial an extended offset. | | Thiswas carried out, and I could now pass my finger beneath these tight spots | | easily.Stability was excellent. She had co-linear angle with correction with | | combinedanteversion of 45 degrees. I could externally rotate her without any | | instability.I could flex her and internally rotate her to 60 degrees without | | instability. An x-ray was obtained. It cut off a good part of her a right prosthesis, | | but we couldsee Christin's line was preserved, that the prosthesis did not appear to be | | inexcessive varus or valgus along the medial wall of the femur, that offset | | appearedsatisfactory and cup positioning was reasonable. I then removed the | | components,placed a second screw in the acetabulum, inserted a neutral liner, a 36 head. | | Elana impacted the size 6 ML taper extended offset stem. It did not seat flush | | likethe broach had. It was 3 mm proud. We waited for a period of time and thenimpacted | | some more, hoping to get further settling. It seemed quite stable and didnot appear to | | want to go any further. I gave thought at this time to trying toretrieve the | | prosthesis and perhaps countersink the size 6 broach a little further.However, my | | recollection was the 6 broach had seated quite firmly at the level thatwe had stopped | | and I was unsure that we could get at this countersink, and even ifit did, I was less | | sure that I could get the size 6 stem to countersink. All ofthis, of course, risked | | that we might end up with a less-secure fixation of thesize 6 prosthesis, not to mention | | complications such as fracture during the removaland further impaction. I felt that | | the slight amount of lengthening should beacceptable in light of this. We placed the | | minus 3.5 head and neck length, reducedit, irrigated it, closed the deep capsule with 1 | | Vicryl, closed the deep fasciawith running and interrupted #1 Vicryl, closed the | | subcutaneous with 2-0 Vicryl andthe skin with adrian. We had utilized an anesthetic | | cocktail in the deep tissuesprior to closure. A sterile dressing was applied and then | | the patient turned to asupine position, placed on a bed, and taken to the recovery room | | having toleratedthe procedure well. Estimated blood loss 500 mL. No replacement. No | | knowncomplications. We did take 1 AP x-ray of the femur after the final prosthesis | | wasin, and seating of the devices looked reasonable.PADMINI [id number] : | | [id number] DATE: 11/12/14JCS/MedQDD: 11/12/2014 11:06:03DT: 11/12/2014 | | 13:22:42Job #: [id number] Signed 11/19/14 | | 1137 | | | | | | | | | | | | | | Triston Daigle | | STORM [id number] : [id number] DATE: 11/12/14 | |it did, I was less sure that I could get the size 6 stem to countersink. All of | |this, of course, risked that we might end up with a less-secure fixation of the | |size 6 prosthesis, not to mention complications such as fracture during the removal | |and further impaction. I felt that the slight amount of lengthening should be | |acceptable in light of this. We placed the minus 3.5 head and neck length, reduced | |it, irrigated it, closed the deep capsule with 1 Vicryl, closed the deep fascia | |with running and interrupted #1 Vicryl, closed the subcutaneous with 2-0 Vicryl and | |the skin with adrian. We had utilized an anesthetic cocktail in the deep tissues | |prior to closure. A sterile dressing was applied and then the patient turned to a | |supine position, placed on a bed, and taken to the recovery room having tolerated | |the procedure well. Estimated blood loss 500 mL. No replacement. No known | |complications. We did take 1 AP x-ray of the femur after the final prosthesis was | |in, and seating of the devices looked reasonable. | | | | | |PADMINI LILLY | |[id number] : 49 | |[id number] | |ADMIT DATE: 11/12/14 | | | |JCS/MedQ | | | | | | /[id number] | |Electronically Signed 11/19/14 1137 | | | | | | Triston Hernandez MD | | | | | | | [...] | | | | | | | |PADMINI LILLY | |[id number] : 49 | |[id number] | |ADMIT DATE: 11/12/14 | + + documented in this encounter Visit Diagnoses Not on filedocumented in this encounter"
--- OUTSIDE RECORDS SUMMARY | ~2019-08-14 | XMS | Encounter Summary ---
Demographics + + + | Address | [address] | | | [place] [address] | + + + | Home Phone | | + + + | Preferred Language | Unknown | + + + | Marital Status | Single | + + + | Christian Affiliation | Unknown | + + + | Race | | + + + | Ethnic Group | Not or | + + + Author + + + | Author | [facility] | + + + | Organization | [facility] | + + + | Address | Unknown | + + + | Phone | Unavailable | + + + Support + + + + + | Name | Relationship | Address | Phone | + + + + + | Bessy Aviles | LITA | [address] | | | | | [id number], [place] | | | | | [address] | | + + + + + Care Team Providers + +------+ + | Care Oil And Gas Superintendent Name | Role | Phone | + [...] [place] | | | | | [address] | [address] | | | | | | [phone] | | | | | | | [...] | + + | 11/12/2014 1:30 PM [facility] | | REPORT OF [id number] [place] [address] | | LOYD LILLY: Triston Hernandez M.D.PREOPERATIVE [...] We began reaming with a 44, medializing.PADMINI [id number] : | | [id number] DATE: 11/12/14I medialized until it looked like [...] quite snug. Joanna used a | | [employer] cutter and a lateralizing reamer to make [...] and seating of the devices looked reasonable.PADMINI [id number] : | | [id number] DATE: 11/12/14JCS/MedQDD: 11/12/2014 11:06:03DT: 11/12/2014 | | 13:22:42Job #: [id number] Signed 11/19/14 | | 1137 | | | | | | | | | | | | | | Triston Daigle | | STORM [id number] : [id number] DATE: 11/12/14 | |it did, I was [...] | | | | |PADMINI LILLY | |[id number] : 49 | |[id number] | |ADMIT DATE: 11/12/14 | | | |JCS/MedQ | | | | | | /[id number] | |Electronically Signed 11/19/14 1137 | | [...] | | | | |PADMINI LILLY | |[id number] : 49 | |[id number] | |ADMIT DATE: 11/12/14 | + + documented in this encounter Visit Diagnoses Not on filedocumented in this encounter"
--- OUTSIDE RECORDS SUMMARY | ~2019-08-14 | XMS | Encounter Summary ---
Demographics + + + | Address | [address] | | | [place] [address] | + + + | Home Phone | | + + + | Preferred Language | Unknown | + + + | Marital Status | Single | + + + | Church Affiliation | Unknown | + + + | Race | | + + + | Ethnic Group | Not or | + + + Author + + + | Author | [facility] | + + + | Organization | [facility] | + + + | Address | Unknown | + + + | Phone | Unavailable | + + + Support + + + + + | Name | Relationship | Address | Phone | + + + + + | Bessy Aviles | ECON | [address] | | | | | [id number], [place] | | | | | [address] | | + + + + + Care Team Providers + +------+ + | Care Water Server Name | Role | Phone | + +------+ + PCP | Unavailable | + +------+ + Encounter Details +--------+ + + + + | Date | Type | Department | Care Team | Description | +--------+ + + + + | 11/05/ | Results | NON-[facility] | Triston Hernandez, | | | 2013 | Only | Department | MD Jordy Reyes | | | | | | [place] | | | | | | [address] | | | | | | [phone] | | | | | | | [...] | + +--------+ + + + | CBC W/DIFF, REFLEX | Routin | 11/05/2014 | | Results for this | | | e | 2:54 PM | | procedure are in the | | | | PST | | results section. | + +--------+ + + + | BASIC METABOLIC SET | Routin | 11/05/2014 | | Results for this | | (NA, K, CL, TCO2, | e | 2:54 PM | | procedure are in the | | BUN, CR, GLU, CA) | | PST | | results section. | + +--------+ + + + | ORT KNEE 4V OR MORE | Routin | 11/05/2014 | | Results for this | | [address] | e | 2:26 PM | | procedure are in the | | | | PST | | results section. | + +--------+ + + + | ORT HIP 2V | Routin | 11/05/2014 | | Results for this | | [address] | e | 1:56 PM | | procedure are in the | | | | PST | | results section. | + +--------+ + + + documented in this encounter Results CBC W/DIFF, REFLEX (11/05/2014 2:54 PM PST) + +-------+ + + + | Component | Value | Ref Range | Performed | Pathologist | | | | | At | Signature | + +-------+ + + + | WHITE BLOOD | 7.4 | 3.2 - 11.0 X10 | [facility] | | | CELL COUNT | | 3/uL | A MEDICAL | | | | | | CENTER | | + +-------+ + + + | HEMOGLOBIN | 13.1 | 12.0 - 16.0 | [facility] | | | | | g/dL | A MEDICAL | | | | | | CENTER | | + +-------+ + + + | RED BLOOD | 4.51 | 3.5 - 5.0 X10 | [facility] | | | CELL COUNT | | 6/uL | A MEDICAL | | | | | | CENTER | | + +-------+ + + + | HEMATOCRIT | 38.6 | 37.0 - 45.0 % | [facility] | | | | | | A MEDICAL | | | | | | CENTER | | + +-------+ + + + | MCV | 85.6 | 82 - 100 fL | [facility] | | | | | | A MEDICAL | | | | | | CENTER | | + +-------+ + + + | MCH | 29.1 | 28.0 - 35.0 pg | [facility] | | | | | | A MEDICAL | | | | | | CENTER | | + +-------+ + + + | MCHC | 34.0 | 32 - 36 g/dL | [facility] | | | | | | A MEDICAL | | | | | | CENTER | | + +-------+ + + + | RDW | 13.1 | 12 - 16 % | [facility] | | | | | | A MEDICAL | | | | | | CENTER | | + +-------+ + + + | PLATELET | 201 | 140 - 350 X10 3 | [facility] | | | COUNT | | | A MEDICAL | | | | | | CENTER | | + +-------+ + + + | MPV | 9.1 | 7.0 - 12.0 fL | [facility] | | | | | | A MEDICAL | | | | | | CENTER | | + +-------+ + + + | NEUTROPHIL | 72.4 | 40 - 80 % | [facility] | | | % | | | A MEDICAL | | | | | | CENTER | | + +-------+ + + + | LYMPHOCYTE | 21.1 | 15 - 45 % | [facility] | | | % | | | A MEDICAL | | | | | | CENTER | | + +-------+ + + + | EOS % | 0.6 | 0 - 5.8 % | [facility] | | | | | | A MEDICAL | | | | | | CENTER | | + +-------+ + + + | BASO % | 0.6 | 0 - 1.8 % | [facility] | | | | | | A MEDICAL | | | | | | CENTER | | + +-------+ + + + | MONOCYTE % | 5.3 | 4.2 - 11.0 % | [facility] | | | | | | A MEDICAL | | | | | | CENTER | | + +-------+ + + + | SEDIMENTATI | 13 | 0 - 30 MM/HR | [facility] | | | ON RATE | | | A MEDICAL | | | | | | CENTER | | + +-------+ + + + + + | Specimen | + + | | + + + + + + + | Performing | Address | City/State/Zipcode | Phone Number | | Organization | | | | + + + + + | [facility] | And | [place] [address] | [phone] | | MEDICAL [facility]ENTER | Streets | | | + + + + + BASIC METABOLIC SET (NA, K, CL, TCO2, BUN, CR, GLU, CA) (11/05/2014 2:54 PM PST) + + + + + + | Component | Value | Ref Range | Performed | Pathologist | | | | | At | Signature | + + + + + + | SODIUM, | 140 | 137 - 146 MEQ/L | [facility] | | | PLASMA | | | A MEDICAL | | | (LAB) | | | CENTER | | + + + + + + | POTASSIUM, | 3.9 | 3.5 - 5.2 MEQ/L | [facility] | | | PLASMA | | | A MEDICAL | | | (LAB) | | | CENTER | | + + + + + + | CO2 | 23 | 22 - 28 MEQ/L | [facility] | | | | | | A MEDICAL | | | | | | CENTER | | + + + + + + | CHLORIDE, | 103 | 98 - 106 MEQ/L | [facility] | | | PLASMA | | | A MEDICAL | | | (LAB) | | | CENTER | | + + + + + + | ANION GAP | 17.9 (H) | 8 - 16 MEQ/L | [facility] | | | | | | A MEDICAL | | | | | | CENTER | | + + + + + + | GLUCOSE, | 109 (H) | 70 - 105 MG/DL | [facility] | | | PLASMA | | | A MEDICAL | | | (LAB) | | | CENTER | | + + + + + + | BUN, PLASMA | 22 | 8 - 30 MG/DL | [facility] | | | (LAB) | | | A MEDICAL | | | | | | CENTER | | + + + + + + | CREATININE | 0.81 | 0.6 - 1.1 MG/DL | [facility] | | | PLASMA | | | A MEDICAL | | | (LAB) | | | CENTER | | + + + + + + | BUN/CREATIN | 27 (H) | 6 - 20 RATIO | [facility] | | | INE RATIO | | | A MEDICAL | | | | | | CENTER | | + + + + + + | CALCIUM, | 9.3 | 8.5 - 10.8 | [facility] | | | PLASMA | | MG/DL | A MEDICAL | | | (LAB) | | | CENTER | | + + + + + + | ESTIMATED | >60.0 | >60 | [facility] | | | GFR | | | A MEDICAL | | | | | | CENTER | | + + + + + + | FASTING? | 2HRS | HR | [facility] | | | | | | A MEDICAL | | | | | | CENTER | | + + + + + + + + | Specimen | + + | | + + + + + + + | Performing | Address | City/State/Zipcode | Phone Number | | Organization | | | | + + + + + | [facility] | And | [place] [address] | [phone] | | [facility] | Streets | | | + + + + + ORT KNEE 4V OR MORE [id number] (11/05/2014 2:26 PM PST) + + | Specimen | + + | | + + + + + | Narrative | Performed At | + + + | EXAM: BILATERAL KNEE SERIES CLINICAL HISTORY: Pain COMPARISON: | [facility] | | None available TECHNIQUE: Bilateral saltlake, standing AP and | DEPARTMENT OF | | merchant views as well as a lateral view of the left knee were | RADIOLOGY | | obtained. FINDINGS: Chronic depression of the medial left knee tibial | | | plateau is present, possibly from healed fracture deformity. | | | Moderate to severe left knee medial and mild to moderate lateral | | | tibiofemoral joint space narrowing is present with medial compartment | | | subchondral sclerosis and moderate tricompartmental marginal | | | spurring. There is vacuum phenomenon and articular surface | | | irregularity present within the medial tibiofemoral joint | | | compartment. No osteochondral lesion, acute fracture or focal | | | osseous destruction is identified. A small left knee suprapatellar | | | recess effusion is visualized. Mild patellofemoral osteoarthritis | | | is seen within the left knee with mild lateral patellofemoral joint | | | space narrowing. Bilateral patellofemoral alignment is | | | normal. Moderate medial and mild to moderate lateral tibiofemoral | | | joint space narrowing is present within the right knee without acute | | | fracture, focal osseous destruction or osteochondral lesion. | | | IMPRESSION:Moderate left knee medial tibiofemoral osteoarthritis with | | | chronic depression of the medial tibial plateau, possibly from | | | healed fracture deformity. | | + + + + + | Procedure Note | + + | Interface, Radiology Results - 07/31/2015 10:51 AM PDT EXAM: BILATERAL KNEE SERIES | | CLINICAL HISTORY: Pain | | COMPARISON: None available | | TECHNIQUE: Bilateral saltlake, standing AP and merchant views as well | | as a lateral view of the left knee were obtained. | | FINDINGS: Chronic depression of the medial left knee tibial plateau | | is present, possibly from healed fracture deformity. Moderate to | | severe left knee medial and mild to moderate lateral tibiofemoral | | joint space narrowing is present with medial compartment subchondral | | sclerosis and moderate tricompartmental marginal spurring. There is | | vacuum phenomenon and articular surface irregularity present within | | the medial tibiofemoral joint compartment. No osteochondral lesion, | | acute fracture or focal osseous destruction is identified. A small | | left knee suprapatellar recess effusion is visualized. Mild | | patellofemoral osteoarthritis is seen within the left knee with mild | | lateral patellofemoral joint space narrowing. | | Bilateral patellofemoral alignment is normal. Moderate medial and | | mild to moderate lateral tibiofemoral joint space narrowing is | | present within the right knee without acute fracture, focal osseous | | destruction or osteochondral lesion. | | IMPRESSION:Moderate left knee medial tibiofemoral osteoarthritis | | with chronic depression of the medial tibial plateau, possibly from | | healed fracture deformity. | + + + +---------+ + + | Performing | Address | City/State/Zipcode | Phone Number | | Organization | | | | + +---------+ + + | [facility] DEPARTMENT OF | | | | | RADIOLOGY | | | | + +---------+ + + ORT HIP 2V [id number] (11/05/2014 1:56 PM PST) + + | Specimen | + + | | + + + + + | Narrative | Performed At | + + + | EXAM: SINGLE VIEW OF THE PELVIS AND ONE-VIEW OF THE RIGHT HIP | [facility] | | CLINICAL HISTORY: TEMPLATING FILMS FOR ARTHROPLASTY SIZING TECHNIQUE: | DEPARTMENT OF | | AP view of the pelvis was obtained. COMPARISON: Right hip and | RADIOLOGY | | pelvis x-rays from 08/22/2014. FINDINGS: Severe central and | | | superolateral joint space narrowing, subchondral sclerosis and large | | | subchondral cysts are present within the right femoral head and | | | acetabulum with acetabular overcoverage from severe | | | osteoarthritis. The superolateral articular surface is mildly | | | flattened. Moderate right and mild left SI joint degeneration is | | | noted. The symphysis pubis is intact. There is no significant | | | narrowing of the left hip joint. No avascular necrosis or acute | | | fracture is visualized. IMPRESSION: Severe right hip | | | osteoarthritis. No interval acute change. | | + + + + + | Procedure Note | + + | Interface, Radiology Results - 07/31/2015 10:51 AM PDT EXAM: SINGLE VIEW OF THE | | PELVIS AND ONE-VIEW OF THE RIGHT HIPCLINICAL HISTORY: TEMPLATING FILMS FOR ARTHROPLASTY | | SIZINGTECHNIQUE: AP view of the pelvis was obtained.COMPARISON: Right hip and pelvis | | x-rays from 08/22/2014.FINDINGS: Severe central and superolateral joint space | | narrowing,subchondral sclerosis and large subchondral cysts are present withinthe right | | femoral head and acetabulum with acetabular overcoveragefrom severe osteoarthritis. The | | superolateral articular surface ismildly flattened. Moderate right and mild left SI | | joint degenerationis noted. The symphysis pubis is intact. There is no | | significantnarrowing of the left hip joint. No avascular necrosis or acutefracture is | | visualized.IMPRESSION: Severe right hip osteoarthritis. No intervalacute change. | |narrowing of the left hip joint. No avascular necrosis or acute | |fracture is visualized. | |IMPRESSION: Severe right hip osteoarthritis. No interval | |acute change. | + + + +---------+ + + [...]
--- OUTSIDE RECORDS SUMMARY | ~2019-08-14 | XMS | Encounter Summary ---
Demographics + + + | Address | [address] | | | [place] [address] | + + + | Home Phone | | + + + | Preferred Language | Unknown | + + + | Marital Status | Single | + + + | Tenriism Affiliation | Unknown | + + + | Race | | + + + | Ethnic Group | Not or | + + + Author + + + | Author | [facility] | + + + | Organization | [facility] | + + + | Address | Unknown | + + + | Phone | Unavailable | + + + Support + + + + + | Name | Relationship | Address | Phone | + + + + + | Bessy Aviles | LITA | [address] | | | | | [id number], [place] | | | | | [address] | | + + + + + Care Team Providers + +------+ + | Care Sheetmetal Patternmaker Name | Role | Phone | + +------+ + | Radha Messer PA-C | PCP | | + +------+ + Reason for Visit + + + | Reason | Comments | + + + | Appointment | | + + + Encounter Details +--------+ + + + + | Date | Type | Department | Care Team | Description | +--------+ + + + + | 01/18/ | Telephone | [facility] | Triston Hernandez, | Appointment | | 2016 | | Sports Medicine & | [address] | | | | | Orthopaedic Surgery | [address] [place] | | | | | [address] | [address] | | | | | [place] | [phone] | | | | | [place] | | | | | | [address] | | | | | | [phone] | | | +--------+ + + + [...]
--- OUTSIDE RECORDS SUMMARY | ~2019-08-14 | XMS | Encounter Summary ---
Demographics + + + | Address | [address] | | | [place] [address] | + + + | Home Phone | | + + + | Preferred Language | Unknown | + + + | Marital Status | Single | + + + | Sabianist Affiliation | Unknown | + + + | Race | | + + + | Ethnic Group | Not or | + + + Author + + + | Author | [facility] | + + + | Organization | [facility] | + + + | Address | Unknown | + + + | Phone | Unavailable | + + + Support + + + + + | Name | Relationship | Address | Phone | + + + + + | Bessy Aviles | LITA | [address] | | | | | [id number], [place] | | | | | [address] | | + + + + + Care Team Providers + +------+ + | Care Bobbin Coil Winder Name | Role | Phone | + [...] [place] | | | | | [address] | [address] | | | | | | [phone] | | | | | | | [...] Triston Hernandez MD - 11/14/2014 8:27 AM [facility] DISCHARGE SUMMARY [address] [address] PADMINI LILLY DATE OF ADMISSION: 11/12/2014 PRIMARY [...] in two weeks for staple removal. OMAR/Letty /[id number] CC: PADMINI LILLY Electronically Signed 11/19/14 1137 MD MAXX Bazan VICTORIA [id number] : 49 [id number] ADMIT DATE: 11/12/14 DISCHARGE DATE: 11/14/14 documented in this encounter Plan of Treatment Not on filedocumented as of this encounter Visit Diagnoses Not on filedocumented in this encounter"
--- OUTSIDE RECORDS SUMMARY | ~2019-08-14 | XMS | Clinical Summary ---
Demographics + + + | Address | [address] | | | [place] [address] | + + + | Home Phone | | + + + | Preferred Language | Unknown | + + + | Marital Status | Unknown | + + + | Gnosticism Affiliation | Unknown | + + + | Race | Unknown | + + + | Ethnic Group | Unknown | + + + Author + + + | Author | [facility] (Historical as of | | | 06-23-19) | + + + | Organization | [facility] (Historical as of | | | 06-23-19) | + + + | Address | Unknown | + + + | Phone | Unavailable | + + + Support +--------+ +---------+ + | Name | Relationship | Address | Phone | +--------+ +---------+ + | No,One | ECON | Unknown | | +--------+ +---------+ + Care Team Providers + +------+ + | Care Shelter Director Name | Role | Phone | [...] +------+-------+ + | MEDICARE | MEDICA | [id number] | | | [address] | | | RE | | | | [place] [address] | | | IP-OP | | | | | + +--------+ +------+-------+ + | MEDICAID | [place] | [id number] | | | [address] | | | N | | | | [place] | | | [place] | | | | [address] | | | OPS ANALYST | | | | | + +--------+ [...] | | al/Fam | | 1950 | [phone] | | | [place]ida | | | [phone] | [place] [address] | + +--------+ +--------+ + +
--- OUTSIDE RECORDS SUMMARY | ~2019-08-14 | XMS | Encounter Summary ---
Demographics + + + | Address | [address] | | | [place] [address] | + + + | Home Phone | | + + + | Preferred Language | Unknown | + + + | Marital Status | Single | + + + | Worship Affiliation | Unknown | + + + | Race | | + + + | Ethnic Group | Not or | + + + Author + + + | Author | [facility] | + + + | Organization | [facility] | + + + | Address | Unknown | + + + | Phone | Unavailable | + + + Support + + + + + | Name | Relationship | Address | Phone | + + + + + | Bessy Aviles | ECON | [address] | | | | | [id number], [place] | | | | | [address] | | + + + + + Care Team Providers + +------+ + | Care Sampler Pickup Name | Role | Phone | + [...] [place] | | | | | | [address] | | | | | | [phone] | | | | | | | [...] | | Results for this | | [address] | e | 2:26 PM | | procedure are in the | | | | PST | | results section. | + +--------+ + + + | ORT HIP 2V | Routin | 11/05/2014 | | Results for this | | [address] | e | 1:56 PM | | [...] | + + + + + | [facility] | And | [place] [address] | [phone] | | MEDICAL CENTER | Streets | [...] 140 | 137 - 146 MEQ/L | [facility] | | | PLASMA | | | [...] | + + + + + | [facility] | And | [place] [address] | [phone] | | [facility] | Streets | | | + + + + + ORT KNEE 4V OR MORE [address] (11/05/2014 2:26 PM PST) + + | [...] + +---------+ + + ORT HIP 2V [id number] (11/05/2014 1:56 PM PST) + + | [...]
--- OUTSIDE RECORDS SUMMARY | ~2019-08-14 | XMS | Encounter Summary ---
Demographics + + + | Address | [address] | | | [place] [address] | + + + | Home Phone | | + + + | Preferred Language | Unknown | + + + | Marital Status | Single | + + + | Mormonism Affiliation | Unknown | + + + | Race | | + + + | Ethnic Group | Not or | + + + Author + + + | Author | [facility] | + + + | Organization | [facility] | + + + | Address | Unknown | + + + | Phone | Unavailable | + + + Support + + + + + | Name | Relationship | Address | Phone | + + + + + | Bessy Aviles | LITA | [address] | | | | | [id number], [place] | | | | | [address] | | + + + + + Care Team Providers + +------+ + | Care Freight Handler Name | Role | Phone | + [...] | | [address] | [address] | | | | | [place] | [phone] | | | | | [place] | | | | | | [address] | | | | | | [phone] | | | +--------+ + + + [...]
--- OUTSIDE RECORDS SUMMARY | ~2019-08-14 | XMS | Clinical Summary ---
Demographics + + + | Address | [address] | | | [place] [address] | + + + | Home Phone [...] [address] | | | | | [id number], [place] | | | | | [address] | | + + + + + Care Team Providers + +------+ + | Care Investment Director Name | Role | Phone | + +------+ + | Radha Messer PA-C | PCP | | + +------+ + Source Comments TAD is fully live on both [facility] Ambulatory and [facility] InPatient.[facility] Allergies No Known Allergies Medications + [...] | B | | sent | | [place], [place] | | | | | | | | [address] | | + +--------+ +--------+ + +--------+ | TITLE I PARAPROFESSIONAL MEDICAID | TITLE I PARAPROFESSIONAL | xxxxxxxx | Effect | | | [...] | | al/Rupert | | 1950 | [phone] | [address] | | | alida | | | [address] (Home) | [place] [address] | + +--------+ +--------+ + +"
--- OUTSIDE RECORDS SUMMARY | ~2019-08-14 | XMS | Encounter Summary ---
Demographics + + + | Address | [address] | | | [place] [address] | + + + | Home Phone | | + + + | Preferred Language | Unknown | + + + | Marital Status | Single | + + + | Orthodoxy Affiliation | Unknown | + + + [...] [address] | | | | | [id number], [place] | | | | | [address] | | + + + + + Care Team Providers + +------+ + | Care Double End Tenoner Operator Name | Role | Phone | + [...] | | [address] | [address] | Dx); Primary | | | | [place] [address] | [phone] | osteoarthritis of | | | | [place], [place] | | one knee, left; Hip | | | | [address] | | pain, bilateral | | | | [phone] | | | +--------+---------+ + + + [...] this encounter Patient Instructions Patient Instructions Russell Hernandez MD - 02/12/2016 3:09 PM PDTHip is [...] the injection carried out in a standard [facility] ion, using anatomy, palpation, and aspiration/loss of [...] | + +--------+ + + + | [place] DRAIN/INJECT | Routin | 02/12/2016 | Primary [...] Performed At | + + + | [facility] [address], [place] | [facility] | | [address] Name: PADMINI LILLY Phys: | DEPARTMENT OF | | RUSSELL HERNANDEZ : 1950 Sex: F | RADIOLOGY | | CSN: [id number] MR# [id number] | | | Exam Date: 02/12/2016 EXAM: [...] Transcribed | | | Date/Time: 02/12/2016 16:23 Industrial Hygiene Engineer: FLUENCY | | + + + + + | Procedure Note | + + | Interface, Radiology Results - 02/12/2016 4:28 PM [facility] | | [address] | | [place] [address] | | | | | | Name: PADMINI LILLY | | Phys: RUSSELL HERNANDEZ | | : 1950 Sex: F | | CSN: [id number] | | MR# [id number] | | Exam Date: 02/12/2016 | | [...] | Transcribed Date/Time: 02/12/2016 16:23 | | Industrial Hygiene Engineer: FLUENCY | | | | | | [...] Performed At | + + + | [facility] [address] [place] [address] | [facility] | | [address] Name: PAMDINI LILLY Phys: | DEPARTMENT OF | | RUSSELL HERNANDEZ : 1950 Sex: F | RADIOLOGY | | CSN: [id number] MR# [id number] | | | Exam Date: 02/12/2016 EXAM: [...] Transcribed Date/Time: 02/12/2016 | | | 16:03 Industrial Hygiene Engineer: FLUENCY | | + + + + + | Procedure Note | + + | Interface, Radiology Results - 02/12/2016 4:08 PM [facility] | | [address] | | [place] [address] | | | | | | Name: MAXXPADMINI | | Phys: RUSSELL HERNANDEZ | | : 1950 Sex: F | | CSN: [id number] | | MR# [id number] | | Exam Date: 02/12/2016 | | [...] | Transcribed Date/Time: 02/12/2016 16:03 | | Industrial Hygiene Engineer: FLUENCY | | | | | | [...]
--- OUTSIDE RECORDS SUMMARY | ~2019-08-14 | XMS | Encounter Summary ---
Demographics + + + | Address | [address] | | | [place] [address] | + + + | Home Phone | | + + + | Preferred Language | Unknown | + + + | Marital Status | Single | + + + | Buddhism Affiliation | Unknown | + + + [...] [address] | | | | | [id number], [place] | | | | | [address] | | + + + + + Care Team Providers + +------+ + | Care Wound/Ostomy Nurse Name | Role | Phone | + [...] Surgery | | | | | | [address] | | | | | | [place] | | | | | | [address] | | | | | | [phone] | | | +--------+ + + + [...] Performed At | + + + | [facility] [address] [place] [address] | [facility] | | [address] Name: PADMINI LILLY Phys: | DEPARTMENT OF | | RUSSELL QUIROZ : 1950 Sex: F | RADIOLOGY | | CSN: [id number] MR# [id number] | | | Exam Date: 02/12/2016 EXAM: [...] Transcribed | | | Date/Time: 02/12/2016 16:23 Mold Maker Plastic Molds: FLUENCY | | + + + + + | Procedure Note | + + | Interface, Radiology Results - 02/12/2016 4:28 PM [facility] | | [address] | | [place] [address] | | | | | | Name: PADMINI LILLY | | Phys: RUSSELL QUIROZ | | : 1950 Sex: F | | CSN: [id number] | | MR# [id number] | | Exam Date: 02/12/2016 | | [...] | Transcribed Date/Time: 02/12/2016 16:23 | | Mold Maker Plastic Molds: FLUENCY | | | | | | [...] Performed At | + + + | [facility] [address] [place] [address] | [facility] | | [address] Name: PADMINI LILLY Phys: | DEPARTMENT OF | | RUSSELL QUIROZ : 1950 Sex: F | RADIOLOGY | | CSN: [id number] MR# [id number] | | | Exam Date: 02/12/2016 EXAM: [...] Transcribed Date/Time: 02/12/2016 | | | 16:03 Mold Maker Plastic Molds: CORI | | + + + + + | Procedure Note | + + | Interface, Radiology Results - 02/12/2016 4:08 PM [facility] | | [address] [place] [address] | | [place] [address] | | | | | | Name: PADMINI LILLY | | Phys: RUSSELL QUIROZ [place] | | : 1950 Sex: F | | CSN: [id number] | | MR# [id number] | | Exam Date: 02/12/2016 | | [...] | Transcribed Date/Time: 02/12/2016 16:03 | | Mold Maker Plastic Molds: CORI | | | | | | [...]
--- OUTSIDE RECORDS SUMMARY | ~2019-08-14 | XMS | Encounter Summary ---
Demographics + + + | Address | [address] | | | [place] [address] | + + + | Home Phone | | + + + | Preferred Language | Unknown | + + + | Marital Status | Single | + + + | Rastafarian Affiliation | Unknown | + + + | Race | | + + + | Ethnic Group | Not or | + + + Author + + + | Author | [facility] | + + + | Organization | [facility] | + + + | Address | Unknown | + + + | Phone | Unavailable | + + + Support + + + + + | Name | Relationship | Address | Phone | + + + + + | Bessy Aviles | ECON | [address] | | | | | [id number], [place] | | | | | [address] | | + + + + + Care Team Providers + +------+ + | Care Cooperative Education Director Name | Role | Phone | [...] [place] | | | | | | [address] | | | | | | [phone] | | | | | | | [...] @RESULTS | 37.0 - 45.0 % | [facility] | | | | CALLED TO [...] | + + + + + | [facility] | [address] [place] | [place] [address] | [phone] | | MEDICAL CENTER | Streets | | | + + + + + HEMATOCRIT (11/13/2014 5:13 AM PST) + + + + + + | Component | Value | Ref Range | Performed | Pathologist | | | | | At | Signature | + + + + + + | HEMATOCRIT | 28.9 (L) | 37.0 - 45.0 % | [facility] | | | | | | [...] + + + | [place] | [place] | [place] [address] | [phone] | | [facility] | Streets | | | + + [...] [place] | | | GLUCOSE, | [id number]: | | OF CARE | | | POC | [id number] Jinny Stoddard | | TESTING | | | |Triage Register Nurse: [phone] Jinny Stoddard | | | | | [...]
[~2019-08-14 08:47] MED LIST changes: +AMLODIPINE BESY10 MG PO; +ZITHROMAX250 MG PO
[2019-08-14] MEDS ORDERED: ZITHROMAX250 MG PO (11:41)
[2019-08-14] MEDS ORDERED: PEPCID20 MG PO (11:47)
== END 2019-08-14 11:50 | disposition home or self-care (01) ==
LOC: ED 08:47
DX: R05 Cough (principal); R93.89 Abnormal findings on diagnostic imaging of other specified body structures; I10 Essential (primary) hypertension; E03.9 Hypothyroidism, unspecified; E78.5 Hyperlipidemia, unspecified; Z88.8 Allergy status to other drugs, medicaments and biological substances; Z79.899 Other long term (current) drug therapy
CPT/HCPCS: 71260; 80053; 83735; 83880; 84484; 85025; 99284-25; Q9967

== ENCOUNTER 2020-10-12 11:08 | Emergency (ER) | payer MEDICARE, OTHER ==
[~2020-10-12] VITALS: Ht 165.1 cm; Wt 69.0 kg
[~2020-10-12 11:08] MED LIST changes: +PEPCID20 MG PO
== END 2020-10-12 14:02 | disposition home or self-care (01) ==
LOC: ED 11:08
DX: K59.00 Constipation, unspecified (principal); E03.9 Hypothyroidism, unspecified; I10 Essential (primary) hypertension; E78.5 Hyperlipidemia, unspecified; Z88.8 Allergy status to other drugs, medicaments and biological substances; Z79.899 Other long term (current) drug therapy
CPT/HCPCS: 74018; 99283-25

== ENCOUNTER 2020-10-14 08:31 | Emergency (ER) | payer MEDICARE, OTHER ==
[~2020-10-14] VITALS: Ht 165.1 cm; Wt 69.0 kg
--- OUTSIDE RECORDS SUMMARY | 2020-10-14 08:34 | XMS ---
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 Kylie VISIT COUNT (12 MO.) 2 [facility] TOTAL 2 NOTE: Visits indicate total known visits. ED/UCC VISIT TRACKING (12 MO.) 10/14/2020 08:32 [facility] [place] TYPE: Emergency COMPLAINT: - CONSTIPATION 10/12/2020 11:08 [facility] [place] TYPE: Emergency COMPLAINT: - CONSTIPATION INPATIENT VISIT TRACKING (12 MO.) No inpatient visits to display in this time frame [email or web address]
== END 2020-10-14 12:52 | disposition home or self-care (01) ==
LOC: ED 08:31
DX: K59.00 Constipation, unspecified (principal); E03.9 Hypothyroidism, unspecified; I10 Essential (primary) hypertension; E78.5 Hyperlipidemia, unspecified; Z88.8 Allergy status to other drugs, medicaments and biological substances; Z79.899 Other long term (current) drug therapy
CPT/HCPCS: 74177; 80053; 81001; 83690; 85025; 99284-25; Q9967

== ENCOUNTER 2020-10-17 09:00 | Emergency (ER) | payer MEDICARE, OTHER ==
[~2020-10-17] VITALS: Ht 165.1 cm; Wt 69.0 kg
--- OUTSIDE RECORDS SUMMARY | 2020-10-17 09:02 | XMS ---
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 Kylie VISIT COUNT (12 MO.) 3 [facility] TOTAL 3 NOTE: Visits indicate total known visits. ED/UCC VISIT TRACKING (12 MO.) 10/17/2020 09:00 [facility] [place] TYPE: Emergency COMPLAINT: - CONSTIPATION 10/14/2020 08:32 [facility] [place] TYPE: Emergency COMPLAINT: - CONSTIPATION DIAGNOSES: - Other correction (current) drug therapy - Allergy status to other drugs, medicaments and biological substances - Essential (primary) hypertension - Hypothyroidism, unspecified - Hyperlipidemia, unspecified - Constipation, unspecified 10/12/2020 11:08 [facility] [place] TYPE: Emergency COMPLAINT: - CONSTIPATION DIAGNOSES: - Allergy status to other drugs, medicaments and biological substances - Other keno terminal operator (current) drug therapy - Hypothyroidism, unspecified - Hyperlipidemia, unspecified - Constipation, unspecified - Essential (primary) hypertension INPATIENT VISIT TRACKING (12 MO.) No inpatient visits to display in this time frame [email or web address]
--- NOTE | 2020-10-17 17:42 | CONS ---
[facility] [address], [place] [address] Signed DATE OF CONSULTATION: 10/17/2020 CHIEF COMPLAINT: Anal pain/constipation. HISTORY OF PRESENT ILLNESS: Padmini is a 70-year-old female, who originally from [place], but had to flee to [facility]. She told me there are missionaries in her family, so she does have some blood as well. She thinks that is why the anal sphincter muscles are much stronger than would normally be expected in a Tajik woman. She is quite concerned about some constipation, but yet she talks about diarrhea. She has been to the emergency room three times in the last few days. Her abdominal x-ray from the showed moderate stool and a CT scan from the showed no concerns around the perirectal area. She had an ultrasound of the perirectal area today and it is unremarkable as well. Her laboratory work has been unremarkable. The ER doctor did a rectal exam today long with endoscopy and was unable to find anything of any concern. Consequently, I had been asked to come to the emergency room to see Padmini as a general surgeon on-call. PAST MEDICAL HISTORY: Hypothyroidism, hypertension, and hyperlipidemia. PAST SURGICAL HISTORY: Right total hip replacement, left knee replacement, tooth extractions, bilateral cataract surgeries in 2004, right shoulder dislocation, and breast implants. SOCIAL HISTORY: She does not smoke or drink. Dr. Morro Martines is her primary care provider. She prefers [facility]. Bessy Aviles is her friend at . FAMILY HISTORY: She told me she is originally from [place], but had flee to [facility]. REVIEW OF SYSTEMS: She had 10 systems reviewed. There were no new findings. ALLERGIES: Lisinopril, losartan, and Xarelto. MEDICATIONS: 1. Amlodipine. 2. Pepcid. 3. Levothyroxine. 4. Vitamin D. Electronically Signed By: RAYMOND FREEDMAN MD 10/17/20 1742 PATIENT NAME: PADMINI LILLY CONSULTATION DATE OF : 48 REPORT #: [id number] PHYSICIAN: RAYMOND FREEDMAN MD PCP: MORRO MARTINES MD REPORT IS CONFIDENTIAL AND NOT TO BE RELEASED WITHOUT AUTHORIZATION [facility] [address], [place] [address] Signed 5. Vitamin B12. 6. Lovastatin. PHYSICAL EXAMINATION: VITAL SIGNS: Blood pressure is 134/72, heart rate 79, respiratory rate 20, temperature 98.4 degrees, and O2 sat is 96% on room air. She is 5 feet 5 inches tall, 69 kg. GENERAL: Padmini is a 70-year-old female, lying supine in the ER. We have our nurse, Daphney with us today. Padmini actually speaks Armenian quite well and understands quite well. She does not appear systemically ill or toxic. LUNGS: Clear to auscultation bilaterally. HEART: Regular rate and rhythm. ABDOMEN: Soft, nontender. She has actually excellent sphincter tone. We can just get the index finger through the anal canal. She seems to have some pain with a digital rectal exam; however, when I pushed posterior and anterior and left and right, it all seemed to bother her. I pressed on the perineal body and that did not seem to bother her at all. I did not feel any masses. There was really very little external hemorrhoid tissue. There was no spasm particularly to the levator muscle on the left. We had a simple plastic anoscope here in the ER and we inserted that, we were through that slowly. Again, she has very good sphincter tone, but no obvious fissure in the posterior anterior midline, and I cannot appreciate any fluctuance anywhere around the anus and I cannot find any local signs or symptoms of infection. LABORATORY DATA: None. RADIOGRAPHIC STUDIES: Abdominal x-ray on 10/12 showed moderate stool burden. CT scan of the abdomen and pelvis on 10/14 showed no concern around the rectal area. Perirectal ultrasound today was unremarkable. ASSESSMENT/PLAN: Padmini is a 70-year-old female, who for some reason is concerned that she is somehow constipated and has been using MiraLAX at home. She feels like there is some pain around the anus, but we cannot appreciate any specific location. We certainly cannot find a fissure or fistula tract or any fluctuance. The perineal body is not bothering her. She actually has rather significant anal sphincter tone. I am not sure if that is new or chronic. I explained to Padmini at this point, I do not think there is any more we could offer her here in the emergency room as a general surgeon. If she wanted formal testing of the anus, she would have to see a colorectal surgeon. She could consider for example anal manometry, defecography and so forth. Our closest colorectal surgeon would be over at [facility]. In the meantime, I think she should stay on her MiraLAX and use lots of Vaseline just prior to bowel movements and conservatively follow up with me as needed. Otherwise, she is going to receive a referral over the colorectal surgeon to the ER. She seemed to be happy and satisfied Electronically Signed By: RAYMOND FREEDMAN MD 10/17/20 6661 PATIENT NAME: PADMINI LILLY CONSULTATION DATE OF : 48 REPORT #: [id number] PHYSICIAN: RAYMOND FREEDMAN MD PCP: MORRO MARTINES MD REPORT IS CONFIDENTIAL AND NOT TO BE RELEASED WITHOUT AUTHORIZATION [address] [place] [address] Signed with that assessment. At this point, we are going to release from care and she can follow up as above. MD LARISA Hanna/SULYL /[id number] cc: Raymond Freedman MD Copies: RAYMOND FREEDMAN MD ~ Electronically Signed By: RAYMOND FREEDMAN MD 10/17/20 1742 PATIENT NAME: PADMINI LILLY CONSULTATION DATE OF : 48 REPORT #: [id number] PHYSICIAN: RAYMOND FREEDMAN MD PCP: MORRO MARTINES MD REPORT IS CONFIDENTIAL AND NOT TO BE RELEASED WITHOUT AUTHORIZATION
== END 2020-10-17 11:53 | disposition home or self-care (01) ==
LOC: ED 09:00
DX: K62.89 Other specified diseases of anus and rectum (principal); E03.9 Hypothyroidism, unspecified; I10 Essential (primary) hypertension; E78.5 Hyperlipidemia, unspecified; Z88.8 Allergy status to other drugs, medicaments and biological substances; Z79.899 Other long term (current) drug therapy
CPT/HCPCS: 76857; 99283-25

== ENCOUNTER 2020-12-17 07:10 | Emergency (ER) | payer MEDICARE, OTHER ==
[~2020-12-17] VITALS: Ht 165.1 cm; Wt 61.7 kg
== END 2020-12-17 09:22 | disposition home or self-care (01) ==
LOC: ED 07:10
DX: K62.89 Other specified diseases of anus and rectum (principal); E03.9 Hypothyroidism, unspecified; I10 Essential (primary) hypertension; E78.5 Hyperlipidemia, unspecified; Z88.8 Allergy status to other drugs, medicaments and biological substances; Z88.5 Allergy status to narcotic agent; Z79.899 Other long term (current) drug therapy
CPT/HCPCS: 99283

== ENCOUNTER 2020-12-20 09:43 | Emergency (ER) | payer MEDICARE, OTHER ==
[~2020-12-20] VITALS: Ht 165.1 cm; Wt 59.0 kg
--- OUTSIDE RECORDS SUMMARY | 2020-12-20 09:46 | XMS ---
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 Kylie VISIT COUNT (12 MO.) [address] [place] [address] TOTAL 5 NOTE: Visits indicate total known visits. ED/UCC VISIT TRACKING (12 MO.) 12/20/2020 09:43 [facility] [place] TYPE: Emergency COMPLAINT: - BOWEL URINE PROBLEMS 12/17/2020 07:10 [facility] [place] TYPE: Emergency COMPLAINT: - CONSTIPATION 10/17/2020 09:00 [facility] [place] TYPE: Emergency COMPLAINT: - CONSTIPATION DIAGNOSES: - Allergy status to other drugs, medicaments and biological substances - Hyperlipidemia, unspecified - Hypothyroidism, unspecified - Other superintendent container terminal (current) drug therapy - Essential (primary) hypertension - Other specified diseases of anus and rectum - Constipation, unspecified - Allergy status to other drugs, medicaments and biological substances - Other specified diseases of anus and rectum 10/14/2020 08:32 [facility] [place] TYPE: Emergency COMPLAINT: - CONSTIPATION DIAGNOSES: - Other snf (current) drug therapy - Allergy status to other drugs, medicaments and biological substances - Allergy status to other drugs, medicaments and biological substances - Essential (primary) hypertension - Hypothyroidism, unspecified - Hyperlipidemia, unspecified - Constipation, unspecified 10/12/2020 11:08 [facility] [place] TYPE: Emergency COMPLAINT: - CONSTIPATION DIAGNOSES: - Allergy status to other drugs, medicaments and biological substances - Allergy status to other drugs, medicaments and biological substances - Other snf (current) drug therapy - Hypothyroidism, unspecified - Hyperlipidemia, unspecified - Constipation, unspecified - Essential (primary) hypertension INPATIENT VISIT TRACKING (12 MO.) No inpatient visits to display in this time frame [email or web address]
== END 2020-12-20 16:18 | disposition short-term general hospital (02) ==
LOC: ED 09:43
DX: E87.1 Hypo-osmolality and hyponatremia (principal); E03.9 Hypothyroidism, unspecified; I10 Essential (primary) hypertension; E78.5 Hyperlipidemia, unspecified; Z88.8 Allergy status to other drugs, medicaments and biological substances; Z88.5 Allergy status to narcotic agent; Z79.899 Other long term (current) drug therapy
CPT/HCPCS: 74177; 80048; 80053; 81001; 85025; 99285-25; J1885; J7030; Q9967

== ENCOUNTER 2021-01-02 09:12 | Inpatient (IN) | payer MEDICARE, OTHER ==
[~2021-01-02] VITALS: Ht 165.1 cm; Wt 58.2 kg
[2021-01-02] MEDS ORDERED: ESTRADIOL42.5 GM VAGINAL (09:53)
--- NOTE | 2021-01-02 10:01 | NUR ---
PATIENT ARRIVES TO FACILITY WITH FRIEND AND BENJAMÍN, RN/NURSE INSIDE SALES EXECUTIVE, AMBULATING WITH WALKER. ADMITTED TO ROOM 110. DR. DUFFY NOTIFIED OF PATIENT ARRIVAL.
--- NOTE | 2021-01-02 10:30 | NUR ---
PT A DIRECT ADMIT FROM DR. MARTINES'S OFFICE. PT ARRIVED AMBULATORY W/ FWW AND FRIEND, RUT ALL W/ PT. PT UNDRESSED AND WEARING GOWN. UP TO VOID. URINE SAMPLE SENT TO LAB. VSS. 20 G IV STARTED IN RIGHT HAND AFTER 2 ATTEMPTS FROM NURSING STAFF. ADMISSION ASSESSMENT COMPLETE. C/O VAGINAL PAIN BUT IS UNABLE TO RATE. SAYS IT'S WORSE AT NIGHT. PT REQUESTING EYE DROPS FOR DRY EYES. PT OWN MED (ESTROGEN CREAM) PLACED IN KITS, OK'D BY MD FOR USE PER PT REQUEST. ADM HX COMPLETE. PT STATES SHE HAS NOT BEEN EATING OR TAKING PO MEDS FOR THE LAST 6 WEEKS D/T VAGINAL AND RECTAL PAIN/PRESSURE. STATES SHE ALSO HAS HAD POOR FLUID INTAKE. REPORTS FEELING DIZZY AND WEAK AT HOME D/T POOR NUTRITIONAL STATUS, FELL APPROX 1 MONTH AGO, PT RECEIVED A WALKER YESTERDAY FOR GENERALIZED WEAKNESS. PT WOULD LIKE GLASSES AND PHONE TO REMAIN IN PURSE AND KEPT IN WALKER. BELONGINGS IN CUPBOARD. PT ADMINISTERED MIRALAX PER MD ORDER. CALL LIGHT IN REACH.
--- NOTE | 2021-01-02 10:47 | NUR ---
1 FAILED ATTEMPT AT IV START BY COVER SEAMER. 1 FAILED ATTEMPT AT IV START BY THIS NURSE. PATIENT INTOLERANT OF IV STARTS. VERBALIZES MULTIPLE TIMES OF WANT TO HAVE IV IN AC SITE. INFORMED PATIENT MULTIPLE TIMES OF NEED FOR IV TO BE IN MORE MANAGEABLE POSITION SO SHE MAY USE IT WITH LESS COMPLICATIONS. REFUSES INITIALLY TO HAVE IV STARTED IN HAND. AGREES TO HAVE IV IN HAND AFTER PREVIOUS STARTS UNSUCCESSFUL. TOLERATED IV START WITH SOME COMPLAINTS OF DISCOMFORT. BLOOD SPECIMENS PULLED WITH IV START AND SENT TO LAB. PATIENT URINATES 10 ML. SPECIMEN ALSO SENT TO LAB.
--- NOTE | 2021-01-02 10:56 | NUR ---
RAPID SWAB COLLECTED
[2021-01-02] MEDS ORDERED: AMLODIPINE BESY10 MG PO (11:17)
[2021-01-02] MEDS ORDERED: TRIAMCINOLONE A15 G1 TOP (11:18)
[2021-01-02] MEDS ORDERED: HYDROCHLOROTHIA25 MG PO (11:21)
--- NOTE | 2021-01-02 11:22 | NUR ---
MED REC COMPLETE
--- NOTE | 2021-01-02 11:30 | NUR ---
DR. DUFFY IN SEE PT. 500 ML FLUID BOLUS ORDERED @ 500 MLS/HR, INFUSING INTO 20 G IV RT HAND. PT REQUESTING UP TO BR, ABLE TO VOID, MISSED HAT. BACK TO BED. REQUESTING WARM FLUIDS TO DRINK. PT PLACED ON 1600 ML FLUID RESTRICTION PER MD. GIVEN WARM JUICE. X-RAY IN FOR KUB. PT REPOSITIONED. CALL LIGHT IN REACH.
--- NOTE | 2021-01-02 11:39 | NUR ---
Critical lab value, sodium 115. Lab called and spoke with Giovani Romano RN. This nurse notified immediately. Dr. Isaacs notified at 1137 by this nurse.
--- NOTE | 2021-01-02 13:09 | NUR ---
DR KESSLER IN TO SEE PT
--- NOTE | 2021-01-02 13:30 | NUR ---
BENJAMÍN RN BUTTER FAT TESTER, ESCORTING PT VIA WHEELCHAIR TO [facility] TRIAGE ROOM FOR PELVIC EXAM TO BE COMPLETED BY DR. KESSLER.
--- NOTE | 2021-01-02 13:53 | NUR ---
PATIENT IN BED RESTING. VITALS AND I&O'S CHARTED. CALL LIGHT IN REACH. NO FURTHER NEEDS AT THIS TIME.
--- NOTE | 2021-01-02 14:00 | NUR ---
REPORT RECEIVED FROM TEREZA ESPINO AND PT. CARE RESUMED. PT. AMBULATED TO THE BATHROOM WITH FWW AND STANDBY ASSIST AND TOLERATED WELL. PT. HAD 1 UNMEASURED VOID. PT. ASSISTED WITH FINDING PHONE AND DENIED FURTHER NEED. LEFT RESTING WITH CALL LIGHT IN REACH.
--- NOTE | 2021-01-02 15:21 | CONS ---
[facility] [address], [place] [address] Signed DATE OF CONSULTATION: 01/02/2021 REQUESTING PHYSICIAN: Janusz Isaacs MD HISTORY OF PRESENT ILLNESS: This patient is currently hospitalized for the treatment of hyponatremia. She has not been eating for the last month because of vaginal pain which worsens with eating. She reports anal pain for approx the last three months and vaginal pain for the last month. The anal pain was thought to be related to her constipation as that has been a chcf problem. The vaginal pain started after using Fleets enemas for the constipation. She now reports she is having vaginal pain all of the time but it is much worse at night. She states it "feels like a bomb went off in her vagina". She has not had any bleeding or discharge. She has had a small BM since being in the hospital. She denies pain with BMs. Her last electrotyper apprentice exam was in 2010 and was normal. REVIEW OF SYSTEMS: Otherwise negative for fever. Denies nausea, vomiting. No dysuria and no vaginal bleeding. Reports poor memory. HABITS: Negative for tobacco or alcohol use. SURGERIES: At approximately age 29 she had what sounds like a perineoplasty in [facility]. She also had breast implants at that time. She has had bilateral cataract surgery. She has had a right hip replacement and left knee replacement. ILLNESSES: Positive for hypertension, hypothyroidism, hypercholesterolemia, joint replacement. MEDICATIONS: Usual medications include thyroid, amlodipine 10 mg daily, Lipitor, hydrochlorothiazide 25 mg as needed but none of these were taken this last month. ALLERGIES: Lisinopril with cough, Xarelto with nausea and vomiting, losartan with nausea and vomiting, morphine felt like drowning. Electronically Signed By: LEANDER KESSLER MD 01/02/21 1521 PATIENT NAME: ARIANNE LILLY CONSULTATION DATE OF : 48 REPORT #: [id number] PHYSICIAN: LEANDER KESSLER MD PCP: HALINA MARTINES MD REPORT IS CONFIDENTIAL AND NOT TO BE RELEASED WITHOUT AUTHORIZATION [facility] [address] [place], [place] [address] Signed GYNECOLOGIC HISTORY: Last Pap smear was in 2010 and was normal. She has not had MMGs. She is a which was a vaginal delivery. The child was removed from her care by the father when the child was 8 months old. PHYSICAL EXAMINATION: VITAL SIGNS: On her exam, blood pressure is 127/69, temp 98.1, pulse is 70. GENERAL: She is a well-developed, well-nourished female in no acute distress. She is easily distracted during the interview. She is Austrian speaking and Trinidadian is definitely a second language for her. ABDOMEN: Soft and nontender. There was no hepatosplenomegaly. PELVIC: There is a large external hemorrhoid. There was no evidence of any thrombosis, but there are superficial ulcerations over the hemorrhoidal surface. It was nontender. The vagina was well estrogenized. There was a Grade 2 cystocele and a Grade 1 rectocele. There was no discharge. There was no levator tension or any pain on palpation of the vaginal canal. The cervix is nontender, nonfriable. The uterus is normal size, firm, nontender. Adnexa have no palpable masses or tenderness. RECTAL: Negative for any masses within the anal canal and rectum. There was no tenderness. IMPRESSION: Hemorrhoid. She does have a grade 2 cystocele but this should not cause the pain she reports. Her examination is otherwise completely normal and no pain was caused during her exam. I also suspect there may be a psychiatric component which may be worsened by her current hyponatremia. Hypontremia Hx joint replacement--hip and knee Hypothyroidism Hypercholesterolemia HTN Hx constipation PLAN: Topical analgesics for the hemorrhoidal discomfort. MD ALICIA FranklinW/MODL /[id number] Electronically Signed By: LEANDER KESSLER MD 01/02/21 1521 PATIENT NAME: ARIANNE LILLY CONSULTATION DATE OF : 48 REPORT #: [id number] PHYSICIAN: LEANDER KESSLER MD PCP: HALINA MARTINES MD REPORT IS CONFIDENTIAL AND NOT TO BE RELEASED WITHOUT AUTHORIZATION [facility] [address] [place] [address] Signed Copies: ~ Electronically Signed By: LEANDER KESSLER MD 01/02/21 1521 PATIENT NAME: ARIANNE LILLY CONSULTATION DATE OF : 48 REPORT #: [id number] PHYSICIAN: LEANDER KESSLER MD PCP: HALINA MARTINES MD REPORT IS CONFIDENTIAL AND NOT TO BE RELEASED WITHOUT AUTHORIZATION
--- NOTE | 2021-01-02 16:52 | NUR ---
PATIENT AMBULATED TO BATHROOM WITH FWW AND STANDBY ASSIST. TOLERATED WELL. COMPLAINS OF FREQUENT SMALL AMOUNTS OF LOOSE STOOL. PT. REQUESTS TO CHANGE IV LOCATION. CURRENT IV SITE FLUSHES WELL AND WNL. PT. STATES IV IN HAND DOES NOT ALLOW HER TO WIPE OR WASH HANDS AND WANTS IT OUT. DISCUSSED NEED TO KEEP IT IN. LUNGS CLEAR AND BOWEL TONES HYPERACTIVE IN ALL FOUR QUADS. PT. REPORTS NUMBNESS AND TINGLING IN LEFT TOES STARTING AFTER HER KNEE SURGERY. UPDATED PT. AND FRIEND ABOUT POC. PT. ORIENTED TO ALL AND ALERT, BUT ASKS REPEATEDLY ABOUT GETTING "NUTRITION SHOT" AND "SODIUM SHOT" EVEN AFTER EDUCATED ABOUT IT. PT. DENIES PAIN OR NAUSEA. LEFT RESTING WITH FRIEND AT BEDSIDE AND CALL LIGHT IN REACH.
--- NOTE | 2021-01-02 17:13 | NUR ---
PT. STARTED ON A CLEAR DIET AND TOLERATING WELL. IV PATENT. URINE OUTPUT QS. PT. HAD NAUSEA AND ABD/BACK PAIN THAT STOPPED AROUND 1100. PT. AMBULATING INDEPENDENTLY AND TOLERATING WELL. USING CPAP AT NIGHT AND RA DURING THE DAY. PT. REPORTS HE DID NOT SLEEP WELL LAST NIGHT AND NEEDS TO REST.
--- NOTE | 2021-01-02 17:16 | NUR ---
PT. ORIENTED, BUT INAPPROPRIATE WITH ANSWERS AT TIMES AND TENDS TO FIXATE ON GETTING "NUTRITION SHOT" AND NOT LIKING HER IV. USES FWW WITH STANDBY ASSIST AND TOLERATES WELL. ON ROOM AIR. IV IS S.L. AND PT. COMPLAINS THAT SHE CANNOT WIPE OR USE IT WITH THE IV, BUT DID NOT TOLERATE IV START AFTER SEVERAL ATTEMPTS. VOIDING QS AND SMALL AMOUNTS OF DIARRHEA FREQUENTLY.
--- NOTE | 2021-01-02 18:46 | NUR ---
Critical lab value recieved from staff in lab. Sodium is 116. Dr. Isaacs notified. No new orders at this time.
--- NOTE | 2021-01-02 19:10 | NUR ---
Report received from Cami STARKS. Pt resting in bed, alert and oriented. States unhappy with IVF running "all night" and wants IV site moved to other arm. This RN reassured pt and made plan for later this evening. Call light in reach, will continue plan of care.
--- NOTE | 2021-01-02 19:45 | NUR ---
IN TO ASST PT TO THE TOILET, SBA FWW, PT REQUESTING DOOR LEFT OPEN, NO FURTHER NEEDS
--- NOTE | 2021-01-02 20:35 | NUR ---
Scheduled medications administered, pt prefers warm/hot water to drink with pills. IVF infusing WNL. Pt ambulated to with 1P SBA and 4WW. Discussed with patient how she would prefer to live at a nursing facility as she feels she doesnt have access to groceries, doesnt know how to cook, etc. Pt reassured, calm. Pt states no needs at this time, warm blankets provided. Call light in reach.
--- NOTE | 2021-01-02 21:20 | NUR ---
PT UTILIZES CALL LIGHT, REQUETS TO USE BATHROOM. PT UP TO BATHROOM AND BACK TO BED WITH 1PA AND 4WW. PT TOLERATED WELL. DENIES FURTHER NEEDS. CALL LIGHT IN REACH.
--- NOTE | 2021-01-02 22:02 | NUR ---
IN TO ASST PT TO THE TOILET, ELVIA CAMPBLEL
--- NOTE | 2021-01-02 22:50 | NUR ---
IN TO ASST PT UP TO THE TOILET, SBA FWW, BACK TO BE AT THIS TIME, NO FURTHER NEEDS
--- NOTE | 2021-01-02 23:10 | NUR ---
IN TO ASST POT TO THE TOILET, PT FELT AN URGENT BM, PT BACK IN BED, NO FURTHER NEEDS
--- NOTE | 2021-01-02 23:10 | NUR ---
IV rate changed to 50 ml/hr per order
--- NOTE | 2021-01-02 23:50 | NUR ---
IN TO ASST PT TO THE TOILET, C\O OF ITCHYNESS, RN INFORMED
--- NOTE | 2021-01-03 | NUR ---
Barrier cream lotion applied to R buttock r/t scabs, "itchy" spots that pt attributes to "flea bites" from her apartment. No further needs at this time
--- NOTE | 2021-01-03 00:15 | NUR ---
Call light answered, pt requests to use BR. Small amount urine voided. Pt up to chair with pillows. IVF infusing WNL, pt states frustrated with IV fluids, reminded of importance of electrolyte balance. No further needs. call light in reach
--- NOTE | 2021-01-03 01:37 | NUR ---
Call light answered, pt requests to go to bathroom. Ambulated SBA with 4WW. IVF infusing WNL. Warm blankets provided. Back to bed, call light in reach
--- NOTE | 2021-01-03 02:50 | NUR ---
IN TO GET VITALS, PT UP TO THE TOILET, NO FURTHER NEEDS
--- NOTE | 2021-01-03 03:30 | NUR ---
IN TO GET PT UP TO THE TOILET, SBA WITH PT HOLDING IV POLE, PT HAS CONCERNS ABOUT HOW SHE WILL CARE FOR HERSELF WHEN SHE DISCHARGES, INFORMED THE RN TO ANSWER PTs QUETIONS, NO FURTHER NEEDS AT THIS TIME
--- NOTE | 2021-01-03 04:05 | NUR ---
Pt called this RN into room to discuss her concerns about plan of care. Pt is adamant that she should go to a shelter instead of returning home. She states that she "would rather , kill herself" than go home alone. She reports to me that her pain is intolerable and compares it to birthing a child. She continues with concerns about accessing food/groceries, cooking, and mobility. She states that her "family doctor and special education case manager" would like to see her move to a SNF/[facility]. She expresses worry about chronic constipation, vaginal/anal pain and sustained hyponatremia. Pt is tearful. Reassured that this RN would request consult with CM, discuss with treatment team, and work to provide assistance with her needs. Pt agrees to rest now and revisit concerns later in morning.
--- NOTE | 2021-01-03 04:30 | NUR ---
IN TO GET PT UP TO THE TOILET, THEN WALKED WITH PT IN THE [place] UNTIL 5AM
--- NOTE | 2021-01-03 05:00 | NUR ---
PT BACK IN ROOM, VITALS DONE AND GOT PT A WASHCLOTH FOR FACE, PT UP TO BRUSHING TEETH,
--- NOTE | 2021-01-03 06:41 | NUR ---
Call light answered, pt ambulated to BR with SBA and 4WW. IVF infusing WNL. Reassured pt regarding plan of care, pt calm and expresses gratitude for staff. Hot water provided and jello with regard to fluid restriction. No further needs, call light in reach
--- NOTE | 2021-01-03 07:32 | NUR ---
this rn received report from shelley schulz. pt awake this am and is stating that whe would like to wash her hair today.
--- NOTE | 2021-01-03 08:29 | NUR ---
pt walked out to the nurses station to notify this rn that she was still hungry. this rn discussed with pt that if she is going to walk out of the room that she would need to put on her mask. this rn ordered pt more food for pt.
--- NOTE | 2021-01-03 10:20 | NUR ---
PT CALLED TO SAY THAT SHE NEEDED TO USE RESTROOM. PT DID NOT WAIT FOR STAFF AND GOT HERSELF TO RESTROOM AND THEN TO CHAIR. PT THEN CALLED AGAIN STATING THAT SHE WANTED TO GO BACK TO BED. PT INSISTANT THAT SHE NEEDED HELP GETTING COVERED UP WITH BLANKETS ALTHOUGH BEING ABLE TO TO INDEPENDENT TO THE RESTROOM.
--- NOTE | 2021-01-03 11:17 | NUR ---
PT APPEARS TO BE RESTING AT THIS TIME. RESPIRATIONS NOTED
--- NOTE | 2021-01-03 11:55 | NUR ---
GOT PATIENT UP TO THE CHAIR FOR BREAKFAST AFTER PATIENT CALLED TO GO TO THE BATHROOM.
--- NOTE | 2021-01-03 19:15 | NUR ---
Report received from Cynthia STARKS. Pt awake resting in bed, IVF infusing WNL. Fluid restriction monitored. No needs at this time.
--- NOTE | 2021-01-03 19:30 | NUR ---
Call light answered, pt assisted to bathroom SBA. Small void. IVF infusing WNL. Hot water at bedside in cup with regard to fluid restriction. Pt has no further needs at this time
--- NOTE | 2021-01-03 21:30 | NUR ---
IN TO GET PT VITALS, PT BACK FROM TOILET
--- NOTE | 2021-01-03 21:35 | NUR ---
Pt continually calling out to nurses station, getting out of bed and attempting to leave room, frequently using call light. Pt states needs "bowel meds" in order to have another BM. Pt has been having loose stools but feels she needs this medication immediately. This RN in room to administer scheduled senna. Pt annoyed and states "staff forgot about her." Pt reassured she is a priority to nursing staff, pt responded well to this. Tucked into bed, no further needs reported at this time. call light in reach.
--- NOTE | 2021-01-03 22:45 | NUR ---
PT UP TO VOID SBA
--- NOTE | 2021-01-03 23:40 | NUR ---
PT UP TO VOID
--- NOTE | 2021-01-03 23:59 | NUR ---
IV fluids DC'd per order
--- NOTE | 2021-01-04 02:40 | NUR ---
Rounded on patient, resting in bed with eyes closed. No apparent needs. Call light in reach
--- NOTE | 2021-01-04 04:07 | NUR ---
PT CALLED, WANTED TO GET UP FOR A WALK, DECIDED SHE WAS TOO TIRED, WANTS TO TRY LATER, TOLD PT TO CALL WHEN READY
--- NOTE | 2021-01-04 06:36 | NUR ---
Medications administered, pt ambulated to BR, hot water provided. Pt requests bowel medications regardless of frequent loose stools, attempted to educate with no knowledge demonstrated. Pt asks for warm blankets, provided.
--- NOTE | 2021-01-04 07:25 | NUR ---
this rn recieved report from shelley schulz. pt out doing laps during report and then came out to this rn to discuss her needing her bowel meds. this rn discussed with pt that this rn will be in to talk with her after a bit
--- NOTE | 2021-01-04 08:10 | NUR ---
this rn in pts room to give pt her monring meds. this rn discussed wiht pt about holding her bowel meds due to her loose stools overnight. pt stated understanding. pt denies any pain this am
--- NOTE | 2021-01-04 09:50 | NUR ---
this rn to give pt more morning meds. this rn discussed with pt about her fluid restirction. pt stated understanding, pt not very receptive to teaching
--- NOTE | 2021-01-04 12:45 | NUR ---
THIS RN IN TO REASSES PT. PT DISCUSSED WITH THAT THIS RN DID NOT GIVE BOWEL MEDS. THIS RN RECEIVED VERBAL ORDER FROM TO GIVE PT 1 SENNA AT THIS TIME DUE TO PTS OBCESSION ABOUT HER BOWELS. PT STATES NO OTHER NEEDS AT THIS TIME AND PT DENIES PAIN TO THIS RN
--- NOTE | 2021-01-04 16:47 | NUR ---
PT APPEARS TO BE RESTING COMFORTABLY AT THIS TIME.
--- NOTE | 2021-01-04 18:13 | NUR ---
this rn notified md about pts sodium being regular again. no new orders given
--- NOTE | 2021-01-04 19:05 | NUR ---
Report received from Cynthia STARKS. Pt currently resting in bed with eyes closed, IVF infusing, no apparent needs at this time. Call light in reach
--- NOTE | 2021-01-04 20:48 | NUR ---
Scheduled medication administered, pt up to BR by self to void. Hemmorhoid cream, vaginal creams applied. Pt brushes teeth and washes face by self. Hot water provided, educated on fluid restriction. IVF infusing WNL. Pt back to BR to attempt to have BM. Call light in reach.
--- NOTE | 2021-01-04 21:18 | NUR ---
Vitals and I/O's complete, pt back to bed by self. New bag IVF hung. Pt offered magazine, she states "I'm too sick to read". Denies abdominal pain. No further needs at this time. Call light in reach.
--- NOTE | 2021-01-04 23:20 | NUR ---
IV fluid rate changed per order. Pt awake in bed, expresses concern that she did not have BM during day today, she did have one early this am (01/04). Pt reminded that she should not continue bowel meds when she is having active loose stools as it will cause electrolyte depletion. Pt does not respond to education. Continue to reinforce.
--- NOTE | 2021-01-05 01:37 | NUR ---
Visualized pt, resting in bed with eyes closed. No apparent needs, IVF infusing WNL
--- NOTE | 2021-01-05 04:37 | NUR ---
Rounded on patient, in bed with washcloth over eyes. Breathing even and unlabored. No apparent needs, call light in reach
--- NOTE | 2021-01-05 05:19 | NUR ---
Vitals and I/O's complete with INTERVENTIONAL RADIOLOGIST assistance, pt requests to talk to this RN, education provided regarding plan of care, good discussion with pt. Pt resting in bed, lab in room. call light in reach.
--- NOTE | 2021-01-05 05:51 | NUR ---
Scheduled medication administered, pt resting in bed A+O. All questions answered.
--- NOTE | 2021-01-05 06:34 | NUR ---
Pt rested, IVF infusing, able to ambulate to BR independently. Continually states concerns about bowel medications, discharge plans and fluid restriction. Attempted to educate. Pt states no pain or nausea last night. Able to call appropriately.
--- NOTE | 2021-01-05 07:38 | NUR ---
this rn received report from shelley schulz. pt awake in room.
--- NOTE | 2021-01-05 07:49 | NUR ---
PATIENT WAITING UP IN BED FOR BREAKFAST, PATIENT HAS REQUESTED WARM WATER IN HER HYDROFLASK, THIS CHIROPRACTOR ASSISTANT DOES NOT FEEL COMFORTABLE DOING THAT, THE PATIENT IS KNOWN TO HIDEWATER THROUOUT HER ROOM FROM STAFF AND DRINK MUCH MORE THAN IS ALLOWED ON HER FLUID RESTRICTION.
--- NOTE | 2021-01-05 07:55 | NUR ---
pt put paintings conservator light to notify this rn that she wants her meds with breakfast this rn stated to her that was the plan. this rn discussed with pt about her fluid restriction. pt insistant on drinking more hot water this am. this rn provided pt with fluids that she is alloted this am. pt denies pain at this time
--- NOTE | 2021-01-05 08:17 | NUR ---
this rn in pts room to provide pt with 1 senokot this am per pt request. geetha furnace operator and tender in room talking with pt at this time
--- NOTE | 2021-01-05 08:20 | NUR ---
PATIENT IS FAMILIAR WITH ME FROM HOSPITAL CHW DEANN WORKING WITH HER AT HOME PRIOR TO HOSPITALIZATION. PATIENT HAS TOLD CHW SHE WANTS TO LIVE IN [place]. SHE HAS HAD ASSESSMENT DONE WITH [facility] OVER A WEEK AGO. CHW HAS SPOKEN WITH HER MULTIPLE TIMES THAT SHE CAN HELP HER FIND ASSISTED LIVING FACILITY OR GET CAREGIVER IN IF SHE GETS MEDICAID. PATIENT HAS SSI ONLY AND GETS AROUND $750/MONTH. PATIENT HAS TOLD CHW SHE DOES NOT WANT TO LIVE WHERE PEOPLE HAVE PETS. PATIENT HAD VARIOUS REASONS. CHW HAS HELPED HER GET APPOINTMENTS WITH CONCESSION STAND ATTENDANT HERE AT CLINIC AND APPT WITH SURGEON AT [facility]. THESE APPOINTMENTS ARE COMING UP SOON AND TRANSPORTATION HAS BEEN ARRANGED. REVIEWED PT/OT NOTES FROM [facility]. PATIENT DOES NOT MEED CRITERIA FOR SNF STAY. SUGGEST ASSISTED LIVING.
--- NOTE | 2021-01-05 08:20 | NUR ---
SPOKE WITH PATIENT IN ROOM. PATIENT SPEAKS OCCITAN, BUT WITH STRONG ACCENT. SHE IS ORIENTED X3. DISCUSSED HER PREFERENCE FOR DISCHARGE. SHE STATES "I WANT TO LIVE IN [place]". EXPLAINED THAT HER THERAPY EVALS INDICATE SHE DOES NOT NEED SKILLED REHAB STAY AT THIS TIME. BUT THAT ASSISTED LIVING WOULD BE A GOOD IDEA. EXPLAINED DIFFERENCE. SHE STATES "I HAVE NO MONEY". DISCUSSED THAT SHE HAD THE ASSESSMENT DONE A WEEK AGO FOR POSSIBLE MEDICAID TO GO TO ASSISTED LIVING OR GET A CAREGIVER WHO CAN HELP HER AT HOME. ASKED IF SHE REMEMBERED CHW DEANN COMING TO HER HOUSE AND TALKING ON THE PHONE WITH [facility]. SHE STATES "OH YES, I REMEMBER DEANN". DISCUSSED THAT IF SHE IS DISCHARGED HOME THAT CHW WILL CONTINUE TO WORK WITH HER. PATIENT HAS A FWW IN ROOM. STAFF STATE SHE HAS BEEN WALKING WITHOUT IT SEVERAL TIMES IN [place]. PATIENT DOES NOT DRIVE. SHE STATES HER FRIEND [facility] TAKES HER TO APPOINTMENTS. DISUCSSED THAT DEANN HAS SET UP APPOINTMENTS WITH ELECTRO MECHANICAL ENGINEER AND SURGEON AT [facility] AND TRANSPORTATION IS SET UP ALSO. SHE ASKS HOW SHE WILL GET HOME FROM THE HOSPITAL, AND I ASSURRED HER WE WILL MAKE SURE SHE HAS TRANSPORTATION. ASKED IF SHE FELT LIKE SHE CAN GO HOME AND CONTINUE TO WORK WITH CHW TO FIND HELP FOR LIVING. SHE STATES SHE "WANTS A NEW ADDRESS". DISCUSSED AGAIN THAT CHW IS ALREADY WORKING WITH HER ON THIS. EXPLAINED THAT HOSPITALIZATION IS BASED ON HER ACUTE MEDICAL NEED. ALSO THAT SHE IS BASELINE IN HER ABILITY TO DO ADL'S AND DOES NOT MEET SKILLED THERAPY STAY. SHE STATES "OH OK I WILL WORK WITH DEANN". CHW HAS ALREADY LOOKED AT RESOURCES FOR NEEDS OF MEDS/FOOD/UTILITIES. SHE HAS THESE RESOURCES IN PLACE. PATIENT DENIES HAVING ANY FAMILY THAT CAN HELP HER. "THEY LIVE FAR AWAY". ASKED IF SHE CAN MOVE THERE AND LIVE WITH FAMILY, SHE STATES "OH NO NO". AGAIN ASKED IF SHE THINKS SHE CAN GO HOME AND CONTINUE OUTPATIENT WORK WITH CHW. SHE IS AGREEABLE.
--- NOTE | 2021-01-05 08:55 | NUR ---
PATIENT SITTING UP IN BED WRITING. VITALS AND I&O'S CHARTED. WAARM WASHCLOTH GIVEN. PATIENT IND IN ROOM, ORAL CARE SUPPLIES AT SINK. CALL LIGHT IN REACH. NO FURTHER NEEDS AT THIS TIME.
--- NOTE | 2021-01-05 09:02 | NUR ---
SPOKE WITH DESHAUN CAZARES AT [facility]. SHE STATES PRAVEENA IS HER FROG SHAKER AND IS WORKING ON PAPERWORK. SHE STATES THE ASSESSMENT WILL PROBABLY SHOW SHE WILL NOT MEET CRITERIA FOR ASSISTED LIVING BUT PROBABLY WILL MEET FOR 20+ HOURS CAREGIVER IN THE HOME. DISCUSSED THAT CHW DEANN WILL CONTINUE TO FOLLOW.
[2021-01-05] MEDS ORDERED: LOVASTATIN40 MG PO (09:16)
[2021-01-05] MEDS ORDERED: LEVOTHYROXINE88 MCG PO (09:16)
[2021-01-05] MEDS ORDERED: SENNA8.6 MG PO (09:17)
--- NOTE | 2021-01-05 09:45 | NUR ---
SPOKE WITH PATIENT IN ROOM. SHE IS UP ON OWN IN ROOM WITHOUT USING ASSISTANCE OR DME. SHE WALKED TO SINK AND BACK TO BED. DR DUFFY HAS SEEN HER AND SHE WILL BE DISCHARGED TODAY. SHE ASKED IF SHE CAN CALL [facility] FOR A RIDE, I ASSURRED HER IF SHE CANNOT GET RUT WE WILL HELP WITH TRANSPORTATION. DISCUSSED THAT CHW WILL FOLLOW UP TO MAKE SURE SHE HAS MEDICATIONS AND NEEDED ITEMS AT HOME. PT THANKS US FOR HELPING HER AND SHE WILL WORK "WITH DEANN" IN CONTINUING POSSIBLE HELP AT HOME THROUGH [facility]. GAVE HER DEANN AND MY CONTACT INFORMATION.
--- NOTE | 2021-01-05 10:28 | NUR ---
DR DUFFY WITH VERBAL ORDER TO SEND ALL IMAGES TO [facility]. IMAGINING DEPARTMENT CALLED. VERBALIZATION RECEIVED THAT IMAGES WERE SENT TO [facility].
== END 2021-01-05 10:52 | disposition home or self-care (01) | DRG 641 ==
LOC: MS 09:12
PROVIDERS: ADMIT Student in an Organized Health Care Education/Training Program; ATTEND Student in an Organized Health Care Education/Training Program
DX: E87.1 Hypo-osmolality and hyponatremia (principal); Z20.822 Contact with and (suspected) exposure to COVID-19; E86.0 Dehydration; R10.2 Pelvic and perineal pain; I10 Essential (primary) hypertension; E78.5 Hyperlipidemia, unspecified; E03.9 Hypothyroidism, unspecified; K62.89 Other specified diseases of anus and rectum; K64.9 Unspecified hemorrhoids; Z88.8 Allergy status to other drugs, medicaments and biological substances; Z88.5 Allergy status to narcotic agent; Z79.899 Other long term (current) drug therapy; Z79.890 Hormone replacement therapy
CPT/HCPCS: 36415; 74018; 80048; 80061; 81001; 83735; 84100; 84295; 84300; 84439; 84443; 85025; 97162; 97166; C9803; J1650; J3475; J7030; J7040; U0003